=== PATIENT | male | born 1970 | race Caucasian/White ===

== ENCOUNTER 2021-05-09 08:19 | Outpatient (REF) | payer OTHER, SELFPAY ==
[2021-05-09 09:14] LABS: Binax Internal Control QC Valid; Binax Lot number: 9864; Binax Now Covid-19 Ag Positive (Negative)
== END 2021-05-09 08:20 | disposition home or self-care (01) ==
LOC: HO.LAB 08:19
PROVIDERS: Visit Provider Internal Medicine
DX: Z20.822 Contact with and (suspected) exposure to COVID-19 (principal)
CPT/HCPCS: C9803

== ENCOUNTER 2021-05-14 07:21 | Outpatient (REF) | payer OTHER, SELFPAY ==
[2021-05-14 08:05] LABS: COVID-19 Test Negative (Negative)
== END 2021-05-14 07:22 | disposition home or self-care (01) ==
LOC: HO.LAB 07:21
PROVIDERS: Visit Provider Internal Medicine
DX: Z20.822 Contact with and (suspected) exposure to COVID-19 (principal)
CPT/HCPCS: 87635; C9803

== ENCOUNTER 2022-08-13 00:56 | Emergency (ER) | payer OTHER, SELFPAY ==
--- NOTE | ~2022-08-13 | CT_ITS ---
EXAMINATION: CT ABDOMEN AND PELVIS WITHOUT CONTRAST CLINICAL INFORMATION: Left flank pain COMPARISON: 10/14/2019 TECHNIQUE: Multidetector volumetric imaging was performed from the superior aspect of the liver through the pubic symphysis. Coronal and sagittal reformatted images were created at the technologist workstation. This CT examination was performed using dose optimization techniques as appropriate, variously including the following: *Automated exposure control *Adjustment of mA and/or kV according to patient size (this includes techniques or standardized protocols for targeted exams where dose is matched to indication/reason for exam; i.e. extremities or head) *Use of iterative reconstruction technique DLP: 565 mGy-cm FINDINGS: LUNG BASES: The visualized lung bases are unremarkable. Coronary artery calcifications are present. LIVER, GALLBLADDER, AND BILIARY TREE: There is hypoattenuation of the liver suspicious for steatosis. No intrahepatic biliary ductal dilatation. The gallbladder is unremarkable with no evidence of radiopaque gallstones, gallbladder wall thickening, or obvious pericholecystic inflammatory changes. PANCREAS: No peripancreatic inflammation. Couple tiny calcifications are noted. SPLEEN: Unremarkable. ADRENAL GLANDS: Unremarkable. KIDNEYS AND URETERS: There is mild left hydroureteronephrosis, likely secondary to a 2 mm calculus at or just beyond the left ureterovesicular junction. No right hydronephrosis. Few bilateral renal calculi are noted measuring up to 5 mm in the lower left kidney. Cortical scarring noted in the upper right kidney. Small bilateral renal cysts noted; no follow-up recommended. BLADDER: Mildly distended. A 2 mm calculus is noted at or just beyond the left ureterovesicular junction. GASTROINTESTINAL TRACT: Small hiatal hernia. Assessment for wall thickening in some segments of the colon is limited due to luminal collapse, though no significant pericolonic stranding is seen to strongly suggest a colitis. No evidence of bowel obstruction. The appendix is unremarkable. No free fluid or free air is seen. ABDOMINAL WALL: Small fat-containing left inguinal hernia. Evidence of prior ventral hernia repair. LYMPH NODES: Normal. VASCULAR: Moderate atherosclerotic calcifications. PELVIC VISCERA: Unremarkable. OSSEOUS STRUCTURES: Degenerative change noted at L5-S1. CT/CT abdomen pelvis wo IV con IMPRESSION: 1. Mild left hydroureteronephrosis, likely secondary to a 2 mm calculus at or just beyond the left ureterovesicular junction. 2. Few bilateral renal calculi. 3. Coronary artery calcifications. Correlation with cardiac risk factors is recommended.
[2022-08-13 00:59] VITALS: BP 118/70; PULSE 90; RESP 16; TEMP 36.6; O2SAT 97; BMI 29.2
[2022-08-13 01:22] LABS: MANUAL DIFF FLAG NO
[2022-08-13 01:23] LABS: Basophils Percent Auto 0.5 % (0-2); Eosinophils Absolute Auto 0.2 X10*3/uL (0.0-0.4); Eosinophils Percent Auto 1.8 % (0-4); Hematocrit 37.8 % (42.0-52.0); Hemoglobin 13.4 g/dl (14.0-18.0); Imm Gran Abs Auto 0.04 X10*3/uL (0.00-0.03); Imm Gran Pct Auto 0.5 % (0.0-0.4); Lymphocytes Percent Auto 22.3 % (20-40); Mean Corpuscular HGB Conc 35.4 g/dl (31.0-36.0); Mean Corpuscular Hemoglobin 31.5 pg (27.0-33.0); Mean Corpuscular Volume 88.9 fL (80.0-98.0); Mean Platelet Volume 8.8 fL (9.4-12.4); Monocytes Absolute Auto 0.7 X10*3/uL (0.1-1.2); Monocytes Percent Auto 8.3 % (2-11); Neutrophils Absolute Auto 5.8 x10*3/uL (2.0-8.3); Neutrophils Percent Auto 66.6 % (45-73); Platelet Count 293 X10*3/uL (160-400); Red Blood Count 4.25 X10*6/uL (4.60-5.80); Red Cell Distribution Width 13.3 % (11.0-16.0); White Blood Count 8.8 X10*3/uL (4.8-10.8)
--- NOTE | 2022-08-13 01:30 | ED_ITS ---
HPI - General Adult General Chief complaint: General Medical Stated complaint: abd pain, history of kidney stones, blood in urine Time Seen by Provider: 08/13/22 01:12 Source: patient and family Mode of arrival: ambulatory History of Present Illness HPI narrative: 52-year-old male arrives with complaints of left lower abdominal/left flank pain that has been ongoing for 3 days with associated dysuria, hematuria, nausea but no vomiting as well as chills. Patient does have a significant past medical history of renal colic as well as renal cancer on the right (twice). Related Data Previous Rx's Medication Instructions Recorded ketorolac 10 mg tablet 10 mg PO Q6H PRN pain 5 days #10 08/13/22 tabs tamsulosin 0.4 mg capsule (Flomax) 0.4 mg PO BEDTIME #4 caps 08/13/22 Allergies Allergy/AdvReac Type Severity Reaction Status Date / Time No Known Allergies Allergy Unverified 01/11/20 19:32 [No Known Allergies*] Review of Systems Review of Systems: Pertinent positives and negatives as stated in HPI [facility] Past Medical History Source: nursing notes reviewed Social History Social History Alcohol intake: never Smoked in Last 30 Days: No Use of substances other than those prescribed or required for medical reasons: No Advance Directives: No Advance Directives Information Provided: Yes Physical Exam ED Vital Signs: Vital Signs - 24 hr 08/13/22 00:59 08/13/22 02:33 Temperature 97.9 F 98.3 F Pulse Rate 90 94 Respiratory Rate 16 16 Blood Pressure 118/70 125/76 Pulse Oximetry 97 97 Oxygen Delivery Method Room Air Room Air BMI result Body Mass Index 29.2 VITAL SIGNS: Reviewed. GENERAL: Well developed, well nourished, in no acute distress. HEAD: Normocephalic/atraumatic EYES: PERRLA, EOMI LUNGS: Normal breath sounds. No adventitious sounds or accessory muscle use. SpO2<97> CARDIOVASCULAR: Regular rate and rhythm without noted murmurs ABDOMEN: Soft, left lower quadrant/flank pain without rebound, non-distended with bowel sounds. MUSCULOSKELETAL: No tenderness, deformities, or effusions noted on gross inspection. EXTREMITIES: No cyanosis, clubbing or edema. SKIN: Inspection of the skin reveals no rashes NEUROLOGIC: Alert and oriented x 4. Strength and sensation to light touch were grossly intact x 4. Medications Administered Discontinued Medications Generic Name Dose Route Start Last Admin Trade Name Karyn PRN Reason Stop Dose Admin Sodium Chloride 1,000 mls @ 999 mls/hr 08/13/22 01:30 08/13/22 02:50 Ns IV 08/13/22 02:30 Infused .Q1H1M MARY Infusion Ketorolac Tromethamine 15 mg 08/13/22 01:26 08/13/22 01:47 Ketorolac Tromethamine 30 Mg/Ml Vial IVPUSH 08/13/22 01:27 15 mg ONCE ONE Administration Ketorolac Tromethamine 15 mg 08/13/22 03:03 08/13/22 03:07 Ketorolac Tromethamine 30 Mg/Ml Vial IVPUSH 08/13/22 03:04 15 mg ONCE ONE Administration Ondansetron HCl 4 mg 08/13/22 01:26 08/13/22 01:48 Ondansetron Hcl 4 Mg/2 Ml Vial IVPUSH 08/13/22 01:27 4 mg ONCE ONE Administration Tamsulosin HCl 0.4 mg 08/13/22 03:24 08/13/22 03:44 Tamsulosin Hcl 0.4 Mg Capsule PO 08/13/22 03:25 0.4 mg ONCE ONE Administration Medical Decision Making Medical Decision Making MDM Narrative: 52-year-old male with history and clinical presentation most indicative of renal colic, will evaluate for possibility of JAYSON and lower clinical suspicion for diverticulitis. Patient received pain medication, IV fluids as well as antiemetics. I reviewed all investigations to include imaging studies in my interpretation is that this patient has a very slight JAYSON on obvious CKD likely secondary to 2 mm stone, on re-evaluation patient has cotton good symptom relief from the medication. Will repeat basic metabolic panel to ensure improvement in the JAYSON and then discharged patient home. All results, findings, plans discussed with the patient and his at bedside. Patient will follow-up with his personal urologist. Differential Diagnosis Please see the discussion above Lab Data Please see the discussion above 08/13/22 01:17 08/13/22 01:17 Labs: Lab Results 08/13/22 08/13/22 08/13/22 Range/Units 01:17 01:17 02:31 WBC 8.8 (4.8-10.8) X10*3/uL RBC 4.25 L (4.60-5.80) X10*6/uL Hgb 13.4 L (14.0-18.0) g/dl Hct 37.8 L (42.0-52.0) % MCV 88.9 (80.0-98.0) fL MCH 31.5 (27.0-33.0) pg MCHC 35.4 (31.0-36.0) g/dl RDW 13.3 (11.0-16.0) % Plt Count 293 (160-400) X10*3/uL MPV 8.8 L (9.4-12.4) fL Immature Gran % (Auto) 0.5 H (0.0-0.4) % Neut % (Auto) 66.6 (45-73) % Lymph % (Auto) 22.3 (20-40) % [place] % (Auto) 8.3 (2-11) % Eos % (Auto) 1.8 (0-4) % Baso % (Auto) 0.5 (0-2) % Lymph # (Auto) 2.0 (1.2-4.9) X10*3/uL [place] # (Auto) 0.7 (0.1-1.2) X10*3/uL Eos # (Auto) 0.2 (0.0-0.4) X10*3/uL Baso # (Auto) 0.0 (0.0-0.2) X10*3/uL Abs Immat Gran (auto) 0.04 H (0.00-0.03) X10*3/uL Absolute Neuts (auto) 5.8 (2.0-8.3) x10*3/uL Absolute Nucleated RBC 0.000 (0.0-0.012) X10*3/uL Nucleated RBC % (auto) 0.0 (0.0-0.2) /100WBC Sodium 139 (135-145) mmol/L Potassium 3.7 (3.3-5.1) mmol/L Chloride 103 (96-108) mmol/L Carbon Dioxide 22 (22-29) mmol/L Anion Gap 18 (12-20) BUN 20 H (9-16) mg/dL Creatinine 1.69 H (0.5-1.4) mg/dL Estim Creat Clear Calc 47.9 Estimated GFR 43 Random Glucose 207 H (60-115) mg/dL Calcium 9.2 (8.4-10.2) mg/dL Urine Color Yellow Urine Appearance Clear Urine pH 5.0 (5.0-9.0) Ur Specific [place] 1.010 (1.005-1.025) Urine Protein Negative (Neg-Trace) mg/dL Urine Glucose (UA) Negative (Negative) mg/dL Urine Ketones Negative (Negative) mg/dL Urine Blood Moderate (2+) H (Negative) Urine Nitrite Negative (Negative) Ur Leukocyte Esterase Negative (Negative) Urine RBC 3-5 H (0-2) /HPF Urine WBC 0-5 (0-5) /HPF Ur Squamous Epith Cells 0-2 (0-2) /HPF Other Crystals Present Urine Bacteria None Seen (None Seen) Hyaline Casts 0-2 (0-2) /LPF 08/13/22 Range/Units 03:26 WBC (4.8-10.8) X10*3/uL RBC (4.60-5.80) X10*6/uL Hgb (14.0-18.0) g/dl Hct (42.0-52.0) % MCV (80.0-98.0) fL MCH (27.0-33.0) pg MCHC (31.0-36.0) g/dl RDW (11.0-16.0) % Plt Count (160-400) X10*3/uL MPV (9.4-12.4) fL Immature Gran % (Auto) (0.0-0.4) % Neut % (Auto) (45-73) % Lymph % (Auto) (20-40) % [place] % (Auto) (2-11) % Eos % (Auto) (0-4) % Baso % (Auto) (0-2) % Lymph # (Auto) (1.2-4.9) X10*3/uL [place] # (Auto) (0.1-1.2) X10*3/uL Eos # (Auto) (0.0-0.4) X10*3/uL Baso # (Auto) (0.0-0.2) X10*3/uL Abs Immat Gran (auto) (0.00-0.03) X10*3/uL Absolute Neuts (auto) (2.0-8.3) x10*3/uL Absolute Nucleated RBC (0.0-0.012) X10*3/uL Nucleated RBC % (auto) (0.0-0.2) /100WBC Sodium 140 (135-145) mmol/L Potassium 4.0 (3.3-5.1) mmol/L Chloride 106 (96-108) mmol/L Carbon Dioxide 22 (22-29) mmol/L Anion Gap 16 (12-20) BUN 20 H (9-16) mg/dL Creatinine 1.69 H (0.5-1.4) mg/dL Estim Creat Clear Calc 47.9 Estimated GFR 43 Random Glucose 181 H (60-115) mg/dL Calcium 8.5 D (8.4-10.2) mg/dL Urine Color Urine Appearance Urine pH (5.0-9.0) Ur Specific [place] (1.005-1.025) Urine Protein (Neg-Trace) mg/dL Urine Glucose (UA) (Negative) mg/dL Urine Ketones (Negative) mg/dL Urine Blood (Negative) Urine Nitrite (Negative) Ur Leukocyte Esterase (Negative) Urine RBC (0-2) /HPF Urine WBC (0-5) /HPF Ur Squamous Epith Cells (0-2) /HPF Other Crystals Urine Bacteria (None Seen) Hyaline Casts (0-2) /LPF Radiology Impression Radiologist Impression: My interpretation is in agreement with radiology's impression of the imaging study. External Record Review External record reviewed: Outpatient record and Prior outpatient labs Chronic Conditions Patient?s care impacted by: Hypertension Discharge Plan Discharge Clinical Impression: Hydroureteronephrosis, Renal colic, Ureterolithiasis, Acute on chronic kidney failure Patient Disposition: Home, Self-Care Instructions: Renal Colic (ED), Hydronephrosis (ED), Ureteral Stones (ED) Additional Instructions: 1. Resume all home medications as prescribed. 2. Tylenol 1000 mg, orally, every 6 hours as needed for pain control. Do not exceed 4000 mg within 24 hours. 3. You have been prescribed Flomax as well as Toradol. 4. Follow-up with your urologist/primary care provider by calling both offices in the morning and setting up an appointment for re-evaluation. Return to the ER for any worsening symptoms. Prescriptions: New tamsulosin [Flomax] 0.4 mg capsule 0.4 mg PO BEDTIME Qty: 4 0RF ketorolac 10 mg tablet 10 mg PO Q6H PRN (Reason: pain) 5 Days Qty: 10 0RF Rx Instructions: Patient received Toradol in the emergency room.
[2022-08-13 01:38] LABS: Anion Gap 18 (12-20); Blood Urea Nitrogen 20 mg/dL (9-16); Calcium 9.2 mg/dL (8.4-10.2); Carbon Dioxide 22 mmol/L (22-29); Chloride 103 mmol/L (96-108); Creatinine Clr Calc Pharmacy 47.9; Estimated Glomerular Filt Rate 43; Glucose Random 207 mg/dL (60-115); Potassium 3.7 mmol/L (3.3-5.1); Sodium 139 mmol/L (135-145)
[2022-08-13] MEDS: Ketorolac Tromethamine 30 MG/ML VIAL 15 MG IVPUSH ×2 (01:47→03:07)
[2022-08-13] MEDS: 0.9 % Sodium Chloride 1,000 ML 999 ML IV (01:48)
[2022-08-13] MEDS: ondansetron HCL 4 MG/2 ML VIAL IVPUSH (01:48)
[2022-08-13 02:33] VITALS: BP 125/76; PULSE 94; RESP 16; TEMP 36.8; O2SAT 97
[2022-08-13 02:40] LABS: Appearance Urine Clear; Color Urine Yellow; Glucose Urine UA Negative (Negative); Leukocyte Esterase Urine Negative (Negative); Nitrite Urine Negative (Negative); UMIC TRIGGER UACC YES; Urine Blood Moderate (2+) (Negative); Urine Ketones Negative (Negative); Urine Protein Negative (Neg-Trace)
[2022-08-13 03:01] LABS: Bacteria Urine None Seen (None Seen); Hyaline Casts Urine 0-2 /LPF (0-2); Other Crystals Urine Present; Squamous Epithelial Cell Urine 0-2 /HPF (0-2); WBC Urine 0-5 /HPF (0-5)
[2022-08-13] MEDS: Tamsulosin HCL 0.4 MG CAPSULE PO (03:44)
[2022-08-13 03:47] LABS: Anion Gap 16 (12-20); Blood Urea Nitrogen 20 mg/dL (9-16); Calcium 8.5 mg/dL (8.4-10.2); Carbon Dioxide 22 mmol/L (22-29); Chloride 106 mmol/L (96-108); Creatinine Clr Calc Pharmacy 47.9; Estimated Glomerular Filt Rate 43; Glucose Random 181 mg/dL (60-115); Sodium 140 mmol/L (135-145)
== END 2022-08-13 03:55 | disposition home or self-care (01) ==
PROVIDERS: Emergency Provider Student in an Organized Health Care Education/Training Program
DX: N13.2 Hydronephrosis with renal and ureteral calculous obstruction (principal); I12.9 Hypertensive chronic kidney disease with stage 1 through stage 4 chronic kidney disease, or unspecified chronic kidney disease; N18.9 Chronic kidney disease, unspecified; N17.9 Acute kidney failure, unspecified
CPT/HCPCS: 36415; 74176; 80048; 81001; 85025; 96361; 96374; 96375; 96376; 99284; 99285; J1885; J2405

== ENCOUNTER 2022-08-16 10:33 | Inpatient (IN) | payer OTHER, SELFPAY ==
--- NOTE | ~2022-08-16 | CT_ITS ---
EXAMINATION: CT ABDOMEN AND PELVIS WITHOUT CONTRAST CLINICAL INFORMATION: Rule out worsening hydronephrosis, abdominal pain, stones COMPARISON: CT abdomen pelvis 08/13/2022 TECHNIQUE: Multidetector volumetric imaging was performed from the superior aspect of the liver through the pubic symphysis. Sagittal and coronal reformatted images were obtained on the technologist's workstation. This CT examination was performed using dose optimization techniques as appropriate, variously including the following: *Automated exposure control *Adjustment of mA and/or kV according to patient size (this includes techniques or standardized protocols for targeted exams where dose is matched to indication/reason for exam; i.e. extremities or head) *Use of iterative reconstruction technique DLP: 535 mGy-cm FINDINGS: LUNG BASES: Unremarkable. ABDOMINAL AND PELVIC WALL: Surgical mesh from prior ventral hernia repair. Small fat-containing umbilical hernia. Small fat-containing bilateral inguinal hernias. LIVER AND BILIARY TREE: Hypoattenuating hepatic parenchyma compatible with hepatic steatosis. GALLBLADDER: Unremarkable. PANCREAS: Unremarkable. SPLEEN: Unremarkable. ADRENAL GLANDS: Unremarkable. KIDNEYS AND URETERS: Bilateral nonobstructing stones measuring up to 4 mm in the right lower pole. Bosniak 1 benign-appearing right renal cyst, no imaging follow-up recommended. A 6 mm stone is now seen in the left ureterovesicular junction with an additional punctate stone within the distal left ureter, see kaba image, with persistent unchanged mild hydroureteronephrosis. Right renal parenchymal cortical scarring. GASTROINTESTINAL TRACT: Small hiatal hernia. Large and small bowel are unremarkable. Normal appendix. VASCULAR: Unremarkable. LYMPH NODES/PERITONEUM: No lymphadenopathy. FREE FLUID: None. BLADDER: Unremarkable. PELVIC VISCERA: Unremarkable. OSSEOUS STRUCTURES: Degenerative disc disease at L5-S1. CT/CT abdomen pelvis wo IV con IMPRESSION: 1. A 6 mm stone is now seen in the left ureterovesicular junction with an additional punctate stone within the distal left ureter, with persistent unchanged mild left hydroureteronephrosis. 2. Bilateral nonobstructing stones measuring up to 4 mm in the right lower pole. 3. Hepatic steatosis.
[2022-08-16 10:35] VITALS: BP 123/78; PULSE 73; RESP 18; TEMP 36.6; O2SAT 98; BMI 29.2
[2022-08-16] MEDS: 0.9 % Sodium Chloride 1,000 ML 999 ML IV (12:21)
[2022-08-16] MEDS: Ketorolac Tromethamine 15 MG/ML VIAL IVPUSH (12:25)
[2022-08-16 12:26] LABS: MANUAL DIFF FLAG NO
[2022-08-16 12:28] LABS: Basophils Percent Auto 0.2 % (0-2); Eosinophils Absolute Auto 0.1 X10*3/uL (0.0-0.4); Eosinophils Percent Auto 0.5 % (0-4); Hematocrit 35.8 % (42.0-52.0); Hemoglobin 12.8 g/dl (14.0-18.0); Imm Gran Abs Auto 0.03 X10*3/uL (0.00-0.03); Imm Gran Pct Auto 0.3 % (0.0-0.4); Lymphocytes Absolute Auto 0.7 X10*3/uL (1.2-4.9); Mean Corpuscular HGB Conc 35.8 g/dl (31.0-36.0); Mean Corpuscular Hemoglobin 31.7 pg (27.0-33.0); Mean Corpuscular Volume 88.6 fL (80.0-98.0); Mean Platelet Volume 8.9 fL (9.4-12.4); Monocytes Absolute Auto 0.8 X10*3/uL (0.1-1.2); Monocytes Percent Auto 7.9 % (2-11); Neutrophils Absolute Auto 8.4 x10*3/uL (2.0-8.3); Neutrophils Percent Auto 84.1 % (45-73); Platelet Count 279 X10*3/uL (160-400); Red Blood Count 4.04 X10*6/uL (4.60-5.80); Red Cell Distribution Width 13.1 % (11.0-16.0); White Blood Count 9.9 X10*3/uL (4.8-10.8)
--- NOTE | 2022-08-16 12:37 | PC.NURSE ---
preliminary med rec completed.
[2022-08-16 12:43] LABS: Alanine Aminotransferase 50 U/L (0-40); Albumin Level 4.5 g/dL (3.5-5.0); Alkaline Phosphatase 83 U/L (39-117); Anion Gap 17 (12-20); Aspartate Amino Transferase 40 U/L (5-37); Bilirubin Total 0.7 mg/dL (0.0-1.0); Blood Urea Nitrogen 25 mg/dL (9-16); Calcium 9.4 mg/dL (8.4-10.2); Carbon Dioxide 23 mmol/L (22-29); Chloride 100 mmol/L (96-108); Creatinine Clr Calc Pharmacy 23.8; Estimated Glomerular Filt Rate 19; Glucose Random 134 mg/dL (60-115); Magnesium 1.5 mg/dL (1.6-2.6); Potassium 4.3 mmol/L (3.3-5.1); Sodium 136 mmol/L (135-145); Total Protein 7.7 g/dL (6.5-8.0)
[2022-08-16] MEDS: HYDROmorphone HCl 1 MG/ML SYRINGE IVPUSH (12:58)
--- NOTE | 2022-08-16 13:12 | ED_ITS ---
HPI - Male Genitourinary General Chief complaint: Urogenital-Male Stated complaint: Kidney stone Time Seen by Provider: 08/16/22 11:30 Source: patient and family Mode of arrival: ambulatory Limitations: no limitations History of Present Illness HPI Narrative: 52-year-old male with no significant past medical history presents to the emergency department with complaints of worsening left flank/groin pain related to kidney stones. He reports symptoms began on Wednesday with left lower abdominal/left flank pain with associated dysuria, hematuria, and nausea. He reports he was seen in this emergency department late Wednesday night and a 2 mm stone in the left UVJ and mild hydroureteronephrosis with seen on CT. Patient was diagnosed with nephrolithiasis and acute kidney injury. He was discharged with p.o. Toradol and tamsulosin which she reports had minimal effect in reducing his discomfort. Today he states he is having severe pain and is having difficulty with urination. He reports his urine is dark with blood. He reports continued nausea without hematuria and chills without fever. He otherwise danya es chest pain, shortness of breath, constipation, diarrhea, melena, hematochezia, headache, or vision changes. Pertinent positives and negatives discussed in HPI. Related Data Home Medications Medication Instructions Recorded Confirmed amlodipine 5 mg tablet 5 mg PO DAILY 08/16/22 08/16/22 hydrochlorothiazide 25 mg tablet 25 mg PO DAILY 08/16/22 08/16/22 lisinopril 40 mg tablet 40 mg PO DAILY 08/16/22 08/16/22 Previous Rx's Medication Instructions Recorded ketorolac 10 mg tablet 10 mg PO Q6H PRN pain 5 days #10 08/13/22 tabs tamsulosin 0.4 mg capsule (Flomax) 0.4 mg PO BEDTIME #4 caps 08/13/22 Allergies Allergy/AdvReac Type Severity Reaction Status Date / Time acetaminophen [From Percocet] Allergy Itching Verified 08/16/22 10:35 oxycodone [From Percocet] Allergy Itching Verified 08/16/22 10:35 Review of Systems Review of Systems: Yes all other systems are reviewed and are negative PMFSH Social History Social History Alcohol intake: unknown Smoked in Last 30 Days: No Use of substances other than those prescribed or required for medical reasons: Unknown Advance Directives: No Advance Directives Information Provided: Yes Physical Exam Vital Signs: Vital Signs: Last Vital Signs Temp 98 F 08/16/22 10:35 Pulse 73 08/16/22 10:35 Resp 18 08/16/22 10:35 BP 123/78 08/16/22 10:35 Pulse Ox 98 08/16/22 10:35 O2 Del Method Room Air 08/16/22 10:35 BMI result Body Mass Index 29.2 Nursing notes and vital signs reviewed. GENERAL APPEARANCE: A&0 x 4, generally well appearing, no acute distress HENMT: Normal to inspection, atraumatic, face symmetrical. Normal external ears, nose, and oropharynx clear. EYE: PERRLA, EOM intact, structures appear normal NECK: Supple without lymphadenopathy. No stiffness or restricted ROM. CHEST: Normal to inspection HEART: Normal rate and regular rhythm, normal S1/S2, no M/R/G LUNGS: LS CTA, moving air well. Able to speak in complete sentences. No crackles, wheezes, or rhonchi auscultated ABDOMEN: Soft, nontender, nondistended. Normal bowel sounds noted BACK: No obvious deformity. Lt CVAT no Rt CVAT EXTREMITIES: Moving all extremities without difficulty. No cyanosis, clubbing, or edema. Normal capillary refill. NEUROLOGICAL: Alert and oriented, moving all 4 extremities with equal strength. CN not formally tested but appearing grossly intact. Observed to ambulate with normal gait. Cognition normal SKIN: Warm and dry without any lesions, rash, or visible sores PSYCH: Cooperative, normal affect, normal thought process Medications Administered Discontinued Medications Generic Name Dose Route Start Last Admin Trade Name Karyn PRN Reason Stop Dose Admin Hydromorphone HCl 1 mg 08/16/22 12:47 08/16/22 12:58 Hydromorphone Hcl 1 Mg/Ml Syringe IVPUSH 08/16/22 12:48 1 mg ONCE ONE Administration Protocol Sodium Chloride 1,000 mls @ 999 mls/hr 08/16/22 12:00 08/16/22 13:53 Ns IV 08/16/22 13:00 Infused .Q1H1M MARY Infusion Ketorolac Tromethamine 15 mg 08/16/22 11:47 08/16/22 12:25 Ketorolac Tromethamine 15 Mg/Ml Vial IVPUSH 08/16/22 11:48 15 mg ONCE ONE Administration Medical Decision Making Medical Decision Making [facility] Narrative: 1140: Old records reviewed for previous imaging, lab studies, ECGs, or notes. Patient was assessed the emergency department. No acute distress or toxicity noted. Patient is A&O x4, LS CTA, RUSSELL x4 with good strength. Based on HPI and PE plan for blood work, ua, CT abdomen pelvis to assess for worsening hydronephrosis. Toradol ordered for manage of discomfort IV fluids ordered. 1230: Chemistry showing worsening JAYSON with BUN 25 and creatinine 3.4 elevated from 20/1.69 on 08/13/2022. Hematology showing stable normocytic anemia most likely due to hematuria. 1245: CT abdomen/pelvis completed. I have independently interpreted this CT showing a 6 mm stone in the left UVJ with an additional stone in the left ureter, mild unchanged left hydroureteronephrosis and bilateral nonobstructing stones noted. Hepatic steatosis noted as incidental finding. IV Dilaudid ordered for continued 10/10 pain. 1300: Patient reassessed. After IV Dilaudid he reports significant relief of discomfort. I discussed patient's CT scan results and potential need for admission. Patient is on board with admission if needed with no unanswered questions at this time. 1310: Spoke with radiologist, Dr. Gomes, to verify size of stone at UVJ. Contacted Dr. Araujo, urologist, regarding patient's CT results. Plan to admit patient to Medicine Service with Urology Service as consult. Per Dr. Araujo patient will undergo inpatient cystoscopy tomorrow. 1325: I spoke with Dr. Al, hospitalist, regarding urology recommendations and admission request. Plan for patient to be admitted to medical service. P.r.n. antiemetics and analgesics ordered. Patient updated regarding admission status. Differential Diagnosis Differential Diagnoses: The differential diagnosis associated with the presentation includes Acute kidney injury, nephrolithiasis Admission/Observation Consideration of admission/observation: Escalation of care including admission/observation considered Plan for medical admission with urology consult Consult Healthcare Provider Management of the patient was discussed with: Hospitalist (Dirk Al) and Environmental Journalist (Meño Araujo) Lab Data [facility] Lab Attestation statement: I reviewed the patient's lab results. 08/16/22 12:20 08/16/22 12:20 Labs: Lab Results 04/23/23 04/23/23 Range/Units 12:20 12:20 WBC 9.9 (4.8-10.8) X10*3/uL RBC 4.04 L (4.60-5.80) X10*6/uL Hgb 12.8 L (14.0-18.0) g/dl Hct 35.8 L (42.0-52.0) % MCV 88.6 (80.0-98.0) fL MCH 31.7 (27.0-33.0) pg MCHC 35.8 (31.0-36.0) g/dl RDW 13.1 (11.0-16.0) % Plt Count 279 (160-400) X10*3/uL MPV 8.9 L (9.4-12.4) fL Immature Gran % (Auto) 0.3 (0.0-0.4) % Neut % (Auto) 84.1 H (45-73) % Lymph % (Auto) 7.0 L (20-40) % [place] % (Auto) 7.9 (2-11) % Eos % (Auto) 0.5 (0-4) % Baso % (Auto) 0.2 (0-2) % Lymph # (Auto) 0.7 L (1.2-4.9) X10*3/uL [place] # (Auto) 0.8 (0.1-1.2) X10*3/uL Eos # (Auto) 0.1 (0.0-0.4) X10*3/uL Baso # (Auto) 0.0 (0.0-0.2) X10*3/uL Abs Immat Gran (auto) 0.03 (0.00-0.03) X10*3/uL Absolute Neuts (auto) 8.4 H (2.0-8.3) x10*3/uL Absolute Nucleated RBC 0.000 (0.0-0.012) X10*3/uL Nucleated RBC % (auto) 0.0 (0.0-0.2) /100WBC Sodium 136 (135-145) mmol/L Potassium 4.3 (3.3-5.1) mmol/L Chloride 100 (96-108) mmol/L Carbon Dioxide 23 (22-29) mmol/L Anion Gap 17 (12-20) BUN 25 H (9-16) mg/dL Creatinine 3.40 H (0.5-1.4) mg/dL Estim Creat Clear Calc 23.8 Estimated GFR 19 Random Glucose 134 H (60-115) mg/dL Calcium 9.4 D (8.4-10.2) mg/dL Magnesium 1.5 L (1.6-2.6) mg/dL Total Bilirubin 0.7 (0.0-1.0) mg/dL AST 40 H (5-37) U/L ALT 50 H (0-40) U/L Alkaline Phosphatase 83 (39-117) U/L Total Protein 7.7 (6.5-8.0) g/dL Albumin 4.5 (3.5-5.0) g/dL Independent Interpretation I performed an independent interpretation of an: CT Scan Radiology Impression Discussion of test interpretation with radiology: I have reviewed the r adiologist's reading. Radiologist Impression: I spoke with radiologist, Dr. Gomes, regarding CT scan results to confirm size of stone in the UVJ Independent Historian Clinical information obtained from an independent historian. History obtained from or confirmed by: Spouse Additional history obtained from patient's regarding medication administration and hematuria Discharge Plan Discharge Clinical Impression: Hydroureteronephrosis, Acute kidney injury, Bilateral nephrolithiasis Patient Disposition: Admitted As Inpatient Prescriptions: No Action tamsulosin [Flomax] 0.4 mg capsule 0.4 mg PO BEDTIME Qty: 4 0RF ketorolac 10 mg tablet 10 mg PO Q6H PRN (Reason: pain) 5 Days Qty: 10 0RF Rx Instructions: Patient received Toradol in the emergency room. amlodipine 5 mg tablet 5 mg PO DAILY hydrochlorothiazide 25 mg tablet 25 mg PO DAILY lisinopril 40 mg tablet 40 mg PO DAILY
--- NOTE | 2022-08-16 13:42 | P.HPHOSP_ITS ---
History of Present Illness Date of Service: 08/16/22 Attending physician on admission: Dirk Al Chief Complaint: Left Flank Pain Pt is a 52-year-old male with a PMH significant for?HTN, renal cancer of right kidney s/p ablation in 2017 with tumor recurrence in 2021 s/p cauterization, and hx of nephrolithiasis who presents to the ED with?left flank pain radiating to his left groin. His also experienced nausea, vomiting, chills. Patient was seen at the ED 3 days prior on 08/13/2022 for similar complaints. Pt first noticed dysuria and hematuria on 08/12/2022. CT then showed mild hydrou reteronephrosis likely secondary to a 2 mm calculus at or just below the left uretrovesicular junction. Repeat CT scan today showed a 6 mm stone in the left ureterovesicular junction with an additional punctate stone within the distal left ureter and unchanged mild left hydroureteronephrosis, and hepatic steatosis. ED contacted Dr. Araujo from Urology, who is scheduled to see the patient tomorrow and perform procedure. Of note, patient is a S[employer]ism and is thus incapable of receiving any blood products. Labs were significant for a BUN of 25, creatinine elevated at 3.40, and chronic transaminitis of AST of 40 and ALT of 50. In the ED patient was treated IVF, ketorolac and Dilaudid. Pt will be admitted to the hospital for JAYSON likely secondary to obstructive uropathy. Review of Systems Review of Systems: Dysuria, hematuria Left flank pain radiating to left groin Nausea, vomiting Chills Yes all other systems are reviewed and are negative [facility] Social History Alcohol intake: unknown Smoked in Last 30 Days: No Use of substances other than those prescribed or required for medical reasons: Unknown Advance Directives: No Advance Directives Information Provided: Yes Meds Allergies Allergy/AdvReac Type Severity Reaction Status Date / Time acetaminophen [From Percocet] Allergy Itching Verified 08/16/22 10:35 oxycodone [From Percocet] Allergy Itching Verified 08/16/22 10:35 Home Medications Medication Instructions Recorded Confirmed Last Taken Type amlodipine 5 mg tablet 5 mg PO DAILY 08/16/22 08/16/22 1 Day Ago History ~08/15/22 hydrochlorothiazide 25 mg tablet 25 mg PO DAILY 08/16/22 08/16/22 1 Day Ago History ~08/15/22 lisinopril 40 mg tablet 40 mg PO DAILY 08/16/22 08/16/22 1 Day Ago History ~08/15/22 Physical Exam Vital Signs and Narrative: Vital Signs: Last Vital Signs Temp 98 F 08/16/22 10:35 Pulse 73 08/16/22 10:35 Resp 18 08/16/22 10:35 BP 123/78 08/16/22 10:35 Pulse Ox 98 08/16/22 10:35 O2 Del Method Room Air 08/16/22 10:35 BMI result Body Mass Index 29.2 Constitutional: Alert, in no acute distress. Mental Status: Oriented to person, place and time. Eyes: Pupils are equal, round, and reactive to light. Ear, Nose, and Throat: Oropharynx clear, mucous membranes moist. Ears and nose without deformities. Trachea midline. Respiratory: Clear to auscultation bilaterally. No wheezing, rales, or rhonchi. Cardiovascular: S1, S2 regular. No murmurs, rubs, or gallops. Gastrointestinal: Abdomen soft, non-distended, lower and left side of abdomen diffusely tender. Normal bowel sounds. Neurologic: Cranial nerves II-XII are grossly intact bilaterally. No focal neurological deficits. Moves all extremities spontaneously. Skin: No rashes or lesions noted. Musculoskeletal: Left flank tenderness. Extremities: No edema. Psychiatric: Normal mood and affect. Results Labs 08/16/22 12:20 08/16/22 12:20 Labs: Laboratory Results - last 24 hr 08/16/22 08/16/22 12:20 12:20 MCV 88.6 MCH 31.7 MCHC 35.8 RDW 13.1 Plt Count 279 MPV 8.9 L Immature Gran % (Auto) 0.3 Neut % (Auto) 84.1 H Lymph % (Auto) 7.0 L [place] % (Auto) 7.9 Eos % (Auto) 0.5 Baso % (Auto) 0.2 Lymph # (Auto) 0.7 L [place] # (Auto) 0.8 Eos # (Auto) 0.1 Baso # (Auto) 0.0 Abs Immat Gran (auto) 0.03 Absolute Neuts (auto) 8.4 H Absolute Nucleated RBC 0.000 Nucleated RBC % (auto) 0.0 Anion Gap 17 Estim Creat Clear Calc 23.8 Estimated GFR 19 Random Glucose 134 H Calcium 9.4 D Magnesium 1.5 L Total Bilirubin 0.7 AST 40 H ALT 50 H Alkaline Phosphatase 83 Total Protein 7.7 Albumin 4.5 Imaging Radiologist's Impressions: Impressions Abdomen/Pelvis CT 08/16/22 12:12 IMPRESSION: 1. A 6 mm stone is now seen in the left ureterovesicular junction with an additional punctate stone within the distal left ureter, with persistent unchanged mild left hydroureteronephrosis. 2. Bilateral nonobstructing stones measuring up to 4 mm in the right lower pole. 3. Hepatic steatosis. Assessment and Plan (1) Nephrolithiasis: Status: Acute (2) Obstructive uropathy: Status: Acute (3) AJYSON (acute kidney injury): Status: Acute Plan Pt is a 52-year-old male with a PMH significant for?HTN, renal cancer of right kidney s/p ablation in 2017 with tumor recurrence in 2021 s/p cauterization, and hx of nephrolithiasis who presents to the ED with?left flank pain radiating to his left groin. JAYSON likely secondary to obstructive uropathy Patient's creatinine 3.40, elevated from 1.69 3 days prior Likely secondary to 6 mm in the left ureterovesicular junction Dilaudid, acetaminophen on pain scale for pain management Continue tamsulosin Urology consult NPO after midnight in anticipation of likely procedure General Transaminitis Chronic, stable, likely secondary to hepatic steatosis HTN Continue amlodipine, hydrochlorothiazide Hold lisinopril due to JAYSON Full Code Attending:?Dr. Al DVT Prophylaxis: Pneumatic boots Pt will require a hospitalization of at least two nights for treatment of?JAYSON likely secondary to obstructive uropathy with surgical procedure. Time Spent With Patient Time: Total time managing care of this patient today ____ minutes. Quality Stroke Does the patient have a stroke diagnosis?: No VTE Prior VTE?: No VTE Risk Level:: Medical - moderate - high VTE Device Contraindication: N/A - Device Ordered VTE Drug Contraindication: Treatment Not Indicated
--- NOTE | 2022-08-16 14:48 | PHA.MEDREC ---
Pharmacy Consult ? Medication Reconciliation Pharmacy has completed the medication reconciliation. Reviewed med rec done by nursing (Ruth Ann).
[2022-08-16 14:54] LABS: Appearance Urine Clear; Color Urine Yellow; Glucose Urine UA Negative (Negative); Leukocyte Esterase Urine Trace (Negative); Nitrite Urine Negative (Negative); UMIC TRIGGER UACC YES; Urine Blood Trace (Negative); Urine Ketones Trace mg/dL (Negative); Urine Protein Negative (Neg-Trace)
[2022-08-16 14:59] LABS: Bacteria Urine None Seen (None Seen); Hyaline Casts Urine 0-2 /LPF (0-2); RBC Urine 0-2 /HPF (0-2); WBC Urine 0-5 /HPF (0-5)
--- NOTE | 2022-08-16 15:10 | PC.NURSE ---
First contact made to floor to give report.
[2022-08-16 16:00] VITALS: BP 134/85; PULSE 76; RESP 20; TEMP 37.2; O2SAT 97
[2022-08-16] MEDS: 0.9 % Sodium Chloride Flush 3 ML SYRINGE IVFLUSH ×2 (16:03→20:47)
[2022-08-16] MEDS: HYDROmorphone HCl 0.5 MG/0.5 ML SYRINGE IVPUSH ×2 (17:44→23:49)
--- NOTE | 2022-08-16 17:56 | PC.NURSE ---
Pt recent admit from ED pt arrived to floor approximately 1545. Pt arrived to unit A&Ox4 and cooperative with care. Pt able to ambulate from bed to stretcher. Pt reports minimal left flank and abd pain at this time. Vital signs stable, all needs met at this time.
[2022-08-16 19:33] VITALS: BP 115/62; PULSE 82; RESP 17; TEMP 36.4; O2SAT 97
[2022-08-16] MEDS: Tamsulosin HCL 0.4 MG CAPSULE PO (20:47)
[2022-08-17] MEDS: HYDROmorphone HCl 0.5 MG/0.5 ML SYRINGE IVPUSH (00:59)
[2022-08-17] MEDS: ondansetron HCL 4 MG/2 ML VIAL IVPUSH (01:09)
[2022-08-17 02:49] VITALS: BP 128/75; PULSE 92; RESP 16; TEMP 37.1; O2SAT 97
[2022-08-17] MEDS: HYDROmorphone HCl 1 MG/ML SYRINGE IVPUSH ×4 (04:06→13:18)
[2022-08-17 07:07] LABS: Anion Gap 12 (12-20); Blood Urea Nitrogen 26 mg/dL (9-16); Calcium 8.8 mg/dL (8.4-10.2); Carbon Dioxide 25 mmol/L (22-29); Chloride 104 mmol/L (96-108); Creatinine Clr Calc Pharmacy 28.2; Estimated Glomerular Filt Rate 23; Glucose Random 140 mg/dL (60-115); Potassium 4.3 mmol/L (3.3-5.1); Sodium 137 mmol/L (135-145)
[2022-08-17 07:12] VITALS: BP 138/84; PULSE 89; RESP 18; TEMP 36.8; O2SAT 98
[2022-08-17] MEDS: amLODIPine Besylate 5 MG TABLET PO (08:50)
[2022-08-17] MEDS: 0.9 % Sodium Chloride Flush 3 ML SYRINGE IVFLUSH (08:53)
--- NOTE | 2022-08-17 09:37 | MHC.CM.PN ---
MALE 52 DX RENAL STONE PROCEDURE PLANNED AFTERNOON. He live with his fiance. He is independent with all functional mobility. He is vaxxed for covid. He declined the offer to document a HCP. DP home self care [facility] will transport home.
[2022-08-17] MEDS: Dextrose 5 % and 0.9 % NaCl 1,000 ML 125 ML IVCONT (09:55)
--- NOTE | 2022-08-17 10:34 | P.CNUR_ITS ---
History of Present Illness Consult details Consult date: 08/17/22 Narrative: Consulting Complaint left distal ureteric stone 52-year-old male Prior history of stones Has had procedures on right kidney for renal cancer with Dr. Sung with [facility] Five day history of left flank pain Been in the emergency room a couple of days ago At that point diagnosed with 3 mm distal ureteric stone Re-presented with nausea, vomiting repeat CT showed distal 8 mm left ureteric stone with progressive hydroureteronephrosis Creatinine 3.4 on presentation, currently 2.9 WBC 9.9 Plan for left distal stone intervention Review of Systems Constitutional: Constitutional: Reports as per HPI and Reports no additional constitutional complaints Cardiovascular: Cardiovascular: Reports as per HPI and Reports no additional cardiovascular complaints Respiratory: Respiratory: Reports as per HPI and Reports no additional respiratory complaints Gastrointestinal: Gastrointestinal: Reports as per HPI and Reports no additi onal gastrointestinal complaints Genitourinary: Genitourinary: Reports as per HPI Musculoskeletal: Musculoskeletal: Reports no additional musculoskeletal complaints and Reports as per HPI Neurologic: Reports system reviewed and no additional complaints, except as documented and Reports as per HPI REPLACED BY [facility] Social History Social History Household Members: Spouse Housing: House Do you presently have visiting nurse or other home services: No Alcohol intake: unknown Patient Tobacco Use Status: Never used Tobacco Smoked in Last 30 Days: No Patient Interested in Nicotine Replacement: No Patient Given Instructions on How to Stop Smoking: No Second Hand Smoke Exposure: No Use of substances other than those prescribed or required for medical reasons: No Currently Displaying Signs/Symptoms of Drug Intoxication Withdrawal: No Any prior treatment program specific to substance use: No Do you feel safe in your current relationship?: Yes Spiritual Healthcare Practices: [facility] Healthcare Practices: Do not accept blood products Advance Directives: No Advance Directives Information Provided: Yes Do you have thoughts of harming others: None Do you have a plan to hurt others: No Plan Recently lost weight without trying: No Eating poorly because of decreased appetite: No Nutrition Risks: No Nutritional Risk Poor oral hygiene: No service: No Current occupational status: disabled Meds Allergies Allergy/AdvReac Type Severity Reaction Status Date / Time acetaminophen [From Percocet] Allergy Itching Verified 08/16/22 10:35 oxycodone [From Percocet] Allergy Itching Verified 08/16/22 10:35 Active Medications: Current Medications Acetaminophen (Acetaminophen 325 Mg Tablet) 650 mg PO QID PRN PRN Reason: Pain, Moderate (Pain Scale 4-6 Amlodipine Besylate (Amlodipine Besylate 5 Mg Tablet) 5 mg PO DAILY [facility]; Protocol Last Admin: 08/17/22 08:50 Dose: 5 mg Hydromorphone HCl (Hydromorphone Hcl 1 Mg/Ml Syringe) 1 mg IVPUSH Q3H PRN; Protocol PRN Reason: Pain, Severe (Pain Scale 7-10) Last Admin: 08/17/22 09:50 Dose: 1 mg Dextrose/Sodium Chloride (D5ns) 1,000 mls @ 125 mls/hr IVCONT .Q8H [facility] Last Admin: 08/17/22 09:55 Dose: 125 mls/hr Ondansetron HCl (Ondansetron Hcl 4 Mg/2 Ml Vial) 4 mg IVPUSH Q8H PRN PRN Reason: Nausea and Vomiting Last Admin: 08/17/22 01:09 Dose: 4 mg Sodium Chloride (0.9 % Sodium Chloride Flush 3 Ml Syringe) 3 ml IVFLUSH QSHIFT [facility] Last Admin: 08/17/22 08:53 Dose: 3 ml Tamsulosin HCl (Tamsulosin Hcl 0.4 Mg Capsule) 0.4 mg PO BEDTIME [facility] Last Admin: 08/16/22 20:47 Dose: 0.4 mg Home Medications Medication Instructions Recorded Confirmed Last Taken Type amlodipine 5 mg tablet 5 mg PO DAILY 08/16/22 08/16/22 1 Day Ago History ~08/15/22 hydrochlorothiazide 25 mg tablet 25 mg PO DAILY 08/16/22 08/16/22 1 Day Ago History ~08/15/22 lisinopril 40 mg tablet 40 mg PO DAILY 08/16/22 08/16/22 1 Day Ago History ~08/15/22 Physical Exam Vital Signs: Vital Signs: Last Vital Signs Temp 98.2 F 08/17/22 07:12 Pulse 89 08/17/22 07:12 Resp 18 08/17/22 07:12 BP 138/84 08/17/22 07:12 Pulse Ox 98 08/17/22 07:12 O2 Del Method Room Air 08/17/22 07:12 BMI result Body Mass Index 29.2 Const: General: cooperative, healthy appearing, comfortable and no acute distress Orientation/consciousness: patient oriented x3 HEENT: Face and sinus: Yes normal facial exam Mouth: moist mucous membranes Neck: Neck: Yes normal visual inspection, Yes full ROM and Yes trachea midline Chest: Chest palpation & inspection: normal inspection of the chest Resp: Effort & Inspection: normal respiratory effort, able to speak in complete sentences and no respiratory distress GI: Inspection: Yes normal to inspection Back/Spine/Pelvis: Cervical Spine: normal cervical lordosis Thoracic/Lumbar Spine: thoracic and lumbar spine normal to inspection Skin: General skin exam: no rashes or lesions noted Neuro: General: patient oriented x3, tone normal and moves all extremities Extrem: General: Yes normal to inspection and Yes capillary refill normal Results Labs 08/16/22 12:20 08/17/22 05:49 Labs: Abnormal lab results 08/16/22 08/16/22 08/16/22 Range/Units 12:20 12:20 14:32 RBC 4.04 L (4.60-5.80) X10*6/uL Hgb 12.8 L (14.0-18.0) g/dl Hct 35.8 L (42.0-52.0) % MPV 8.9 L (9.4-12.4) fL Neut % (Auto) 84.1 H (45-73) % Lymph % (Auto) 7.0 L (20-40) % Lymph # (Auto) 0.7 L (1.2-4.9) X10*3/uL Absolute Neuts (auto) 8.4 H (2.0-8.3) x10*3/uL BUN 25 H (9-16) mg/dL Creatinine 3.40 H (0.5-1.4) mg/dL Random Glucose 134 H (60-115) mg/dL Magnesium 1.5 L (1.6-2.6) mg/dL AST 40 H (5-37) U/L ALT 50 H (0-40) U/L Urine Blood Trace H (Negative) Ur Leukocyte Esterase Trace H (Negative) 08/17/22 Range/Units 05:49 RBC (4.60-5.80) X10*6/uL Hgb (14.0-18.0) g/dl Hct (42.0-52.0) % MPV (9.4-12.4) fL Neut % (Auto) (45-73) % Lymph % (Auto) (20-40) % Lymph # (Auto) (1.2-4.9) X10*3/uL Absolute Neuts (auto) (2.0-8.3) x10*3/uL BUN 26 H (9-16) mg/dL Creatinine 2.87 H (0.5-1.4) mg/dL Random Glucose 140 H (60-115) mg/dL Magnesium (1.6-2.6) mg/dL AST (5-37) U/L ALT (0-40) U/L Urine Blood (Negative) Ur Leukocyte Esterase (Negative) Short CBC 08/16/22 Range/Units 12:20 WBC 9.9 (4.8-10.8) X10*3/uL Hgb 12.8 L (14.0-18.0) g/dl Hct 35.8 L (42.0-52.0) % Plt Count 279 (160-400) X10*3/uL BMP 08/16/22 08/17/22 12:20 05:49 Sodium 136 137 Potassium 4.3 4.3 Chloride 100 104 Carbon Dioxide 23 25 BUN 25 H 26 H Creatinine 3.40 H 2.87 H Calcium 9.4 D 8.8 D Liver Function 08/16/22 Range/Units 12:20 Total Bilirubin 0.7 (0.0-1.0) mg/dL AST 40 H (5-37) U/L ALT 50 H (0-40) U/L Alkaline Phosphatase 83 (39-117) U/L Albumin 4.5 (3.5-5.0) g/dL Urine 08/16/22 Range/Units 14:32 Urine Color Yellow Urine Appearance Clear Urine pH 5.0 (5.0-9.0) Ur Specific [place] 1.020 (1.005-1.025) Urine Protein Negative (Neg-Trace) mg/dL Urine Glucose (UA) Negative (Negative) mg/dL All other labs normal. Assessment and Plan (1) JAYSON (acute kidney injury): Status: Acute (2) Obstructive uropathy: Status: Acute (3) Nephrolithiasis: Status: Acute Plan rehydration left distal stone intervention Ureteroscopy We discussed the nature of the decision and reasonable alternatives for performing ureteroscopy. Options such as medical therapy were discussed. Interventions include chemical dissolution, ESWL, ureteroscopy with laser lithotripsy and stent placement, PCNL. The relative uncertainties and benefits related to each alternate procedure were adequately discussed. General surgical risks including, but not limited to - pain, bleeding, infection, myocardial infarction, pulmonary embolus, deep vein thrombosis and cerebrovascular accident which may result in further hospi talization were discussed. Full disclosure of the procedure as well as all major risks, benefits and complications were discussed including but not limited to damage to the urethra, bladder and kidney infection, damage to the ureter, stent migration or malposition, scarring to the renal pelvis, remnant stone fragments, subsequent stone passage with need for secondary procedures. The overall secondary procedure rate is approximately 10-15%. The overall clearance rate is approximately 90-95%. Success of the procedure in the short-term does not necessarily guarantee that long-term success will be maintained. Suitable follow up will need to be maintained. The patient showed understanding of discussion and wishes to proceed with - cystoscopy, retrograde, ureteroscopy, possible lithotripsy/stone basketing and stent on the left side Time Spent With Patient Time: Total time managing care of this patient today ____ minutes. Procedures Date of Service Date of Service: 08/17/22
--- NOTE | 2022-08-17 14:40 | P.PNIM_ITS ---
Subjective Subjective Date of Service: 08/17/22 Interval History: Complaining of persistent left flank pain, denies fever chills no lightheadedness or dizziness no nausea no vomiting no other acute issues overnight. NPO for left ureteral stone intervention this afternoon. Review of Systems Review of Systems: Yes all other systems are reviewed and are negative Physical Exam Vital Signs: Vital Signs: Last Vital Signs Temp 98.2 F 08/17/22 07:12 Pulse 89 08/17/22 07:12 Resp 18 08/17/22 07:12 BP 138/84 08/17/22 07:12 Pulse Ox 98 08/17/22 07:12 O2 Del Method Room Air 08/17/22 07:12 BMI result Body Mass Index 29.2 Const: Other: General resting comfortably in no acute distress. Neck supple no JVD. CVS regular rate rhythm, Respiratory lungs clear to auscultation, no respiratory distress, no wheeze, no rhonchi. Gastrointestinal abdomen soft, nontender, bowel sounds audible, no guarding , no rigidity. Left flank tenderness. Extremities no edema. Neuro nonfocal Skin no rash Objective Data Active Medications Acetaminophen (Acetaminophen 325 Mg Tablet) 650 mg PO QID PRN PRN Reason: Pain, Moderate (Pain Scale 4-6 Amlodipine Besylate (Amlodipine Besylate 5 Mg Tablet) 5 mg PO DAILY [facility]; Protocol Last Admin: 08/17/22 08:50 Dose: 5 mg Documented By: ANTOINETTE Hydromorphone HCl (Hydromorphone Hcl 1 Mg/Ml Syringe) 1 mg IVPUSH Q3H PRN; Protocol PRN Reason: Pain, Severe (Pain Scale 7-10) Last Admin: 08/17/22 13:18 Dose: 1 mg Documented By: ANTOINETTE Dextrose/Sodium Chloride (D5ns) 1,000 mls @ 125 mls/hr IVCONT .Q8H [facility] Last Admin: 08/17/22 09:55 Dose: 125 mls/hr Documented By: ANTOINETTE Ondansetron HCl (Ondansetron Hcl 4 Mg/2 Ml Vial) 4 mg IVPUSH Q8H PRN PRN Reason: Nausea and Vomiting Last Admin: 08/17/22 01:09 Dose: 4 mg Documented By: CARLOTTA Sodium Chloride (0.9 % Sodium Chloride Flush 3 Ml Syringe) 3 ml IVFLUSH QSHIFT [facility] Last Admin: 08/17/22 08:53 Dose: 3 ml Documented By: ANTOINETTE Tamsulosin HCl (Tamsulosin Hcl 0.4 Mg Capsule) 0.4 mg PO BEDTIME [facility] Last Admin: 08/16/22 20:47 Dose: 0.4 mg Documented By: CARLOTTA Labs 08/16/22 12:20 08/17/22 05:49 Labs: Laboratory Results - last 24 hr 08/16/22 08/17/22 14:32 05:49 Anion Gap 12 Estim Creat Clear Calc 28.2 Estimated GFR 23 Random Glucose 140 H Calcium 8.8 D Urine Color Yellow Urine Appearance Clear Urine pH 5.0 Ur Specific House 1.020 Urine Protein Negative Urine Glucose (UA) Negative Urine Ketones Trace Urine Blood Trace H Urine Nitrite Negative Ur Leukocyte Esterase Trace H Urine RBC 0-2 Urine WBC 0-5 Ur Squamous Epith Cells 3-5 Urine Bacteria None Seen Hyaline Casts 0-2 Assessment and Plan (1) JAYSON (acute kidney injury): Status: Acute (2) Obstructive uropathy: Status: Acute (3) Nephrolithiasis: Status: Acute Plan repeat CT showed distal 8 mm left ureteric stone with progressive hydroureteronephrosis Creatinine 3.4 on presentation, currently 2.9 WBC 9.9 Plan for left distal stone intervention 52-year-old male with a PMH significant for?HTN, renal cancer of right kidney s/p ablation in 2017 with tumor recurrence in 2021 s/p cauterization, and hx of nephrolithiasis who presents to the ED with?left flank pain radiating to his left groin. JAYSON likely secondary to obstructive uropathy Patient's creatinine 3.40, elevated from 1.69 3 days prior Creatinine trending down, follow BMP Likely secondary to stone left ureterovesicular junction Continue IV Dilaudid, for pain management, add K-pad Continue tamsulosin Seen by Urology plan is for left distal stone intervention this afternoon continue NPO and IV fluids Transaminitis Chronic, stable, likely secondary to hepatic steatosis HTN Continue amlodipine, Hold lisinopril and hydrochlorothiazide due to JAYSON Full Code DVT Prophylaxis: Pneumatic boots Pt will require continued inpatient hospitalization for JAYSON and further management of left ureteric stone Time Spent With Patient Time: Total time managing care of this patient today ____ minutes. Quality Stroke Does the patient have a stroke diagnosis?: No VTE Prior VTE?: No VTE Risk Level:: Medical - moderate - high VTE Device Contraindication: N/A - Device Ordered VTE Drug Contraindication: Treatment Not Indicated
[2022-08-17 15:49] VITALS: BP 140/67; PULSE 90; RESP 20; TEMP 37; O2SAT 99
[2022-08-17] MEDS: Acetaminophen 325 MG TABLET 650 MG PO (17:10)
--- NOTE | 2022-08-17 19:13 | PC.NURSE ---
1849 patient states no longer having pain. reports has been urinating and passing sand stone fragments all day. dr. allan messaged and made aware. procedure cancelled following patient express preference to cancel and surgeon notification of no longer having pain and apparent stone fragments in urine.
[2022-08-17] MEDS: Tamsulosin HCL 0.4 MG CAPSULE PO (20:08)
--- NOTE | 2022-08-18 16:24 | PM.DS ---
DS: Providers Provider Date of Service: 08/17/22 Date of admission: 08/16/22 14:35 Primary care physician: Unknown Physician Consults: 08/16/22 15:04 Consult to Urology Routine Consulting Provider: Meño Araujo Reason for consultation: 6mm obstructing stone DS: Diagnosis Discharge Diagnosis (1) JAYSON (acute kidney injury): Status: Acute (2) Obstructive uropathy: Status: Acute (3) Nephrolithiasis: Status: Acute DS: Summary Hospital Course Hospital Course: Date of Service: 08/16/22 Attending physician on admission: Dirk Al Chief Complaint: Left Flank Pain Pt is a 52-year-old male with a PMH significant for?HTN, renal cancer of right kidney s/p ablation in 2018 with tumor recurrence in 2021 s/p cauterization, and hx of nephrolithiasis who presents to the ED with?left flank pain radiating to his left groin.? His also experienced nausea, vomiting, chills.? Patient was seen at the ED 3 days prior on 08/13/2022 for similar complaints. Pt first noticed dysuria and hematuria on 08/12/2022. CT then showed mild hydroureteronephrosis likely secondary to a 2 mm calculus at or just below the left uretrovesicular junction.? Repeat CT scan today showed a 6 mm stone in the left ureterovesicular junction with an additional punctate stone within the distal left ureter and unchanged mild left hydroureteronephrosis, and hepatic steatosis.? ED contacted Dr. Araujo from Urology, who is scheduled to see the patient tomorrow and perform procedure.? Of note, patient is a Mosque and is thus incapable of receiving any blood products. Labs were significant for a BUN of 25, creatinine elevated at 3.40, and chronic transaminitis of AST of 40 and ALT of 50.? In the ED patient was treated IVF, ketorolac and Dilaudid. Pt will be admitted to the hospital for JAYSON likely secondary to obstructive uropathy. 52-year-old male with a PMH significant for?HTN, renal cancer of right kidney s/p ablation in 2018 with tumor recurrence in 2021 s/p cauterization, and hx of nephrolithiasis who presents to the ED with?left flank pain radiating to his left groin. JAYSON likely secondary to obstructive uropathy, CT abdomen showed 8 mm left ureteric stone with progressive hydroureteronephrosis, creatinine 3.40, elevated from 1.69, 3 days prior, patient admitted to medical floor placed on IV fluids, IV analgesics and was continued on Flomax subsequently patient underwent left distal stone intervention postprocedure patient discharge by Dr. Araujo. Transaminitis Chronic, stable, likely secondary to hepatic steatosis HTN Continue amlodipine, Hold lisinopril and hydrochlorothiazide due to JAYSON, recommend to follow BMP and resume blood pressure medications. Time Spent with Patient Time attestation: Total time managing care of this patient today ____ minutes. Discharge coordination time: Greater than 30 minutes Quality: Safe Use of Opioids Does Pt have an Active Cancer Diagnosis on the Problem List?: No Quality: Stroke Does the patient have a stroke diagnosis?: No Physical Exam Vital Signs: Vital Signs: Last Vital Signs Temp 98.6 F 08/17/22 15:49 Pulse 90 08/17/22 15:49 Resp 20 08/17/22 15:49 BP 140/67 H 08/17/22 15:49 Pulse Ox 99 08/17/22 15:49 O2 Del Method Room Air 08/17/22 15:49 BMI result Body Mass Index 29.2 Const: Other: General resting co mfortably in no ac [place] distress.? Nec k? supple no JVD. CVS? regular rate rhythm, Respirator y lungs clear to a uscultation, no re spiratory distress , no wheeze, no rh onchi. Gastrointes tinal abdomen soft , non tender, anastasiia l sounds audible, no guarding , no r igidity.? Extremi ties no edema. Rahul ro nonfocal Skin n o rash Discharge Plan Discharge Anticipated Discharge Date/Time: 08/17/22 19:57 Patient Disposition: Home, Self-Care Discharge Diagnosis: ureteric stone Referrals: Physician,Unknown J [Primary Care Provider] - 1 Week Discharge Medications: Continued tamsulosin [Flomax] 0.4 mg capsule 0.4 mg PO BEDTIME Qty: 4 0RF ketorolac 10 mg tablet 10 mg PO Q6H PRN (Reason: pain) 5 Days Qty: 10 0RF Rx Instructions: Patient received Toradol in the emergency room. amlodipine 5 mg tablet 5 mg PO DAILY hydrochlorothiazide 25 mg tablet 25 mg PO DAILY lisinopril 40 mg tablet 40 mg PO DAILY Discharge Orders: Discharge Order (Routine); Ordered 08/17/22 Ordered By: Meño Araujo Diet: Advance to usual diet Activity on Discharge: As tolerated Stand Alone Forms: Patient Portal Discharge page Care Plan Goals: stones Health Concerns: stones Plan of Treatment: stones Assessment: stones Discharge Date/Time: 08/17/22 20:05
== END 2022-08-17 20:05 | disposition home or self-care (01) | DRG 465 ==
LOC: HO.ED 14:29 → HO.EDOVER 14:47 → HO.S3 14:56
PROVIDERS: Nurse Practitioner Family; Admitting Provider Student in an Organized Health Care Education/Training Program; Emergency Provider Emergency Medicine Emergency Medical Services; PCP Family Medicine; Visit Provider Hospitalist
DX: N13.0 Hydronephrosis with ureteropelvic junction obstruction (principal); N17.9 Acute kidney failure, unspecified; K76.0 Fatty (change of) liver, not elsewhere classified; I10 Essential (primary) hypertension; Z85.528 Personal history of other malignant neoplasm of kidney; Z88.5 Allergy status to narcotic agent; Z88.6 Allergy status to analgesic agent; Z79.899 Other long term (current) drug therapy
CPT/HCPCS: 36415; 74176; 80048; 80053; 81001; 83735; 85025; 99285; J1170; J1885; J1956; J2405

== ENCOUNTER 2023-01-17 15:07 | Emergency (ER) | payer OTHER, SELFPAY ==
--- NOTE | ~2023-01-17 | XR_ITS ---
EXAMINATION:XR foot LT 2V, XR ankle LT min 3V VIEWS ACQUIRED: Frontal lateral oblique left foot, frontal lateral 2 obliques ankle. CLINICAL INFORMATION: Reason for Exam Can fell on foot COMPARISON: None available at the time of this dictation. FINDINGS: Plate and multiple screws hardware distal tibia are intact. Old fracture has healed. No evidence of acute new fractures or dislocation. Ankle mortise is preserved. Talar dome is intact. Subtalar joint is normal. There is no evidence of acute fracture or dislocation. Intertarsal, tarsometatarsal, metatarsophalangeal and interphalangeal joints are intact. Surrounding soft tissues is normal. , Soft tissue swelling around lateral malleolus. XR/XR foot LT 2V IMPRESSION: * Soft tissue swelling around lateral malleolus. * No radiographic evidence of acute fracture. * Plate and screws hardware distal tibia are intact.
--- NOTE | ~2023-01-17 | XR_ITS ---
EXAMINATION:XR foot LT 2V, XR ankle LT min 3V VIEWS ACQUIRED: Frontal lateral oblique left foot, frontal lateral 2 obliques ankle. CLINICAL INFORMATION: Reason for Exam Can fell on foot COMPARISON: None available at the time of this dictation. FINDINGS: Plate and multiple screws hardware distal tibia are intact. Old fracture has healed. No evidence of acute new fractures or dislocation. Ankle mortise is preserved. Talar dome is intact. Subtalar joint is normal. There is no evidence of acute fracture or dislocation. Intertarsal, tarsometatarsal, metatarsophalangeal and interphalangeal joints are intact. Surrounding soft tissues is normal. , Soft tissue swelling around lateral malleolus. XR/XR ankle LT min 3V IMPRESSION: * Soft tissue swelling around lateral malleolus. * No radiographic evidence of acute fracture. * Plate and screws hardware distal tibia are intact.
[2023-01-17 15:14] VITALS: BP 126/78; PULSE 83; RESP 18; TEMP 37.2; O2SAT 98; BMI 28.2
--- NOTE | 2023-01-17 15:17 | ED_ITS ---
HPI - General Adult General Chief complaint: Extremity Injury, Lower Stated complaint: L swollen foot Time Seen by Provider: 01/17/23 15:20 Source: patient and family Mode of arrival: wheelchair Limitations: no limitations History of Present Illness HPI narrative: 52-year-old male with a history of previous surgery on left tibia with hardware in place presents to the ER with complaints of left foot and ankle pa in. Per patient he had a twisting injury 1 week ago. He had pain for several days but then this seemed to get better. 3 days ago he dropped a can of heavy chili on his left foot. Since then he has had increasing pain, swelling and warmth. Patient does not believe that he had any abrasion or open wounds. He denies any fevers or chills. Related Data Home Medications Medication Instructions Recorded Confirmed amlodipine 5 mg tablet 5 mg PO DAILY 08/16/22 08/16/22 hydrochlorothiazide 25 mg tablet 25 mg PO DAILY 08/16/22 08/16/22 lisinopril 40 mg tablet 40 mg PO DAILY 08/16/22 08/16/22 Previous Rx's Medication Instructions Recorded ketorolac 10 mg tablet 10 mg PO Q6H PRN pain 5 days #10 08/13/22 tabs tamsulosin 0.4 mg capsule (Flomax) 0.4 mg PO BEDTIME #4 caps 08/13/22 cephalexin 500 mg capsule 500 mg PO BID #20 caps 01/17/23 doxycycline monohydrate 100 mg 100 mg PO BID #20 caps 01/17/23 capsule Allergies Allergy/AdvReac Type Severity Reaction Status Date / Time oxycodone [From Percocet] Allergy Itching Verified 08/16/22 10:35 Review of Systems Review of Systems: Yes all other systems are reviewed and are negative Constitutional: Constitutional: Reports no additional constitutional complaints, Denies body ache(s), Denies chills, Denies fever(s), Denies headache(s) and Denies weakness Eyes: Eyes: Reports no additional eye complaints and Denies change in vision ENT: Reports system reviewed and no additional complaints, except as documented, Denies dizziness, Denies headache(s), Denies nasal congestion, Denies nasal discharge and Denies neck pain Cardiovascular: Cardiovascular: Reports no additional cardiovascular complaints, Denies chest pain, Denies leg edema and Denies dyspnea Respiratory: Respiratory: Reports no additional respiratory complaints, Denies cough and Denies dyspnea Gastrointestinal: Gastrointestinal: Reports no additional gastrointestinal complaints, Denies abdominal pain, Denies diarrhea, Denies nausea and Denies vomiting Genitourinary: Genitourinary: Denies urinary incontinence Musculoskeletal: Musculoskeletal: Reports no additional musculoskeletal complaints, Denies back pain, Reports arthralgias, Reports joint swelling, Denies limited range of motion, Denies neck pain, Denies numbness and Denies tingling Integumentary/Breasts: Skin/Breast: Reports system reviewed and no additional complaints, except as docu, Reports swelling, Reports erythema and Denies rash Neurologic: Reports system reviewed and no additional complaints, except as documented, Denies Abnormal speech present, Denies dizziness, Denies headache(s), Denies numbness, Denies tingling and Denies weakness PMFSH Past Medical History Attestation statement: The following information was validated with the patient. Source: old records reviewed and nursing notes reviewed Social History Social History Household Members: Spouse Housing: House Do you presently have visiting nurse or other home services: No Alcohol intake: unknown Patient Tobacco Use Status: Never used Tobacco Second Hand Smoke Exposure: No Advance Directives: No Advance Directives Information Provided: No service: No Current occupational status: disabled Physical Exam ED Vital Signs: Vital Signs - 24 hr 01/17/23 15:14 Temperature 98.9 F Pulse Rate 83 Respiratory Rate 18 Blood Pressure 126/78 Pulse Oximetry 98 Oxygen Delivery Method Room Air BMI result Body Mass Index 28.2 Const General: cooperative, healthy appearing, comfortable and no acute distress Orientation/consciousness: patient oriented x3 Limitations: no limitations [facility] Head: Yes normal to inspection Ears: hearing grossly normal bilaterally General nose exam: Normal external nose present Face and sinus: Yes normal facial exam Mouth: Normal oral and palatal mucosa present Throat: Yes posterior oropharynx normal Eyes General: appearance normal, both eyes and all related structures Pupils: Equal, round and reactive pupils present Neck Neck: Yes normal visual inspection Chest Chest palpation & inspection: normal inspection of the chest Resp Effort & Inspection: normal respiratory effort Auscultation: clear to auscultation bilaterally Cardio Rate: regular rate Rhythm: regular rhythm Peripheral pulses: Peripheral pulses 2+ throughout GI Inspection: Yes normal to inspection Palpation (GI): Soft to palpation and nontender Auscultation: normal bowel sounds Back/Spine/Pelvis Thoracic/Lumbar Spine: thoracic and lumbar spine normal to inspection Skin General skin exam: no rashes or lesions noted Neuro General: patient oriented x3, no focal motor deficits and normal sensation to monofilament Cranial nerves: Yes Equal, round and reactive pupils present Cognition (Neuro): normal cognition Speech: No Abnormal speech present Gait exam (Neuro): Normal gait present Motor exam (neuro): 5/5 motor strength present throughout Extrem Other: To the left foot to there is swelling over the dorsal and medial aspect. There is erythema over the dorsal and medial aspect. There is warmth over the dorsal and medial aspect. there is no swelling, erythema or warmth over the ankle or left lower extremity. There are normal DP and PT pulses. Sensation is intact distally. Range of motion of the ankle is normal both passively and actively. Course Course Course Narrative: RME: 52 yold male presents to the ED for left foot/ankle pain after can fell on foot 3 days ago. patient twisted ankle 1 weeks ago. patient denies any other trauma. Xrays ordered Reevaluation(s) Reevaluation #1: x-ray show stable hardware, no radiographic evidence of acute fracture with soft tissue swelling noted. Patient be discharged home with oral antibiotics, Melecio wrap and crutches for ambulation. Reviewed worrisome signs and symptoms when to return to the emergency room. Comfortable plan for discharge home. Procedures Orthopedic Splinting/Casting Injury #1: Lower Extremity Injury Location: foot Lower Extremity Immobilizer: Melecio wrap Other Orthopedic Equipment: crutches Medical Decision Making Medical Decision Making MDM Narrative: 52-year-old male with a history of previous surgery on left tibia with hardware in place presents to the ER with complaints of left foot and ankle pa in. Per patient he had a twisting injury 1 week ago. He had pain for several days but then this seemed to get better. 3 days ago he dropped a can of heavy chili on his left foot. Since then he has had increasing pain, swelling and warmth. Patient does not believe that he had any abrasion or open wounds. He denies any fevers or chills. To the left foot to there is swelling over the dorsal and medial aspect. There is erythema over the dorsal and medial aspect. There is warmth over the dorsal and medial aspect. there is no swelling, erythema or warmth over the ankle or left lower extremity. There are normal DP and PT pulses. Sensation is intact distally. Range of motion of the ankle is normal both passively and actively. Patient had x-rays ordered from triage I will review. clinically patient has what appears to be a cellulitis the foot although I do not appreciate any abrasion or open wound. Pain may have had an abrasion had already healed. He is nontoxic, afebrile. there is no evidence of septic joint were concern for necrotizing fasciitis or compartment syndrome. His compartments are soft and compressible. The cellulitis is not circumferential. Therefore I believe the patient can be discharged home with oral antibiotics with strict return precautions. Differential Diagnosis Differential Diagnoses: The differential diagnosis associated with the presentation includes Cellulitis, contusion, fracture low concern for vascular injury, dislocation, necrotizing fasciitis, compart ment syndrome Admission/Observation Consideration of admission/observation: Escalation of care including admission/observation considered afebrile, nontoxic with a non circumferential cellulitis which does not require IV antibiotics and be managed outpatient with oral antibiotics Independent Interpretation I performed an independent interpretation of an: Plain X-Ray Interpretation: I independently reviewed the x-ray and agree with the radiology report Radiology Impression Discussion of test interpretation with radiology: I have reviewed the radiologist's reading. Radiologist Impression: [address] [address] XRay Report Signed Patient: Yoan Martins MR#: [id number] : 1970 Acct:[id number] Age/Sex: 52 / M ADM Date: 01/17/23 Loc: .ED Attending Dr: Ordering Physician: Rudolph Perez Date of Service: 01/17/23 Procedure(s): XR ankle LT min 3V Accession Number(s): [id number] cc: Rudolph Perez; Physician,Unknown ~ EXAMINATION:XR foot LT 2V, XR ankle LT min 3V VIEWS ACQUIRED: Frontal lateral oblique left foot, frontal lateral 2 obliques ankle. CLINICAL INFORMATION: Reason for Exam Can fell on foot COMPARISON: None available at the time of this dictation. FINDINGS: Plate and multiple screws hardware distal tibia are intact. Old fracture has healed. No evidence of acute new fractures or dislocation. Ankle mortise is preserved. Talar dome is intact. Subtalar joint is normal. There is no evidence of acute fracture or dislocation. Intertarsal, tarsometatarsal, metatarsophalangeal and interphalangeal joints are intact. Surrounding soft tissues is normal. , Soft tissue swelling around lateral malleolus. XR/XR ankle LT min 3V IMPRESSION: * Soft tissue swelling around lateral malleolus. * No radiographic evidence of acute fracture. * Plate and screws hardware distal tibia are intact. Independent Historian Clinical information obtained from an independent historian. History obtained from or confirmed by: Spouse Prescription Management I considered prescription management with: Antibiotic Discharge Plan Discharge Clinical Impression: Cellulitis Patient Disposition: Home, Self-Care Instructions: Cellulitis (ED) Additional Instructions: Rest, ice, compression use the crutches for ambulation Take Motrin or Tylenol for pain Your x-rays show no signs of fracture. I do believe that you have cellulitis. Please take the antibiotics as prescribed. Please return for any increasing redness, increasing swelling, increasing pain, fevers or chills. Prescriptions: New cephalexin 500 mg capsule 500 mg PO BID Qty: 20 0RF doxycycline monohydrate 100 mg capsule 100 mg PO BID Qty: 20 0RF No Action tamsulosin [Flomax] 0.4 mg capsule 0.4 mg PO BEDTIME Qty: 4 0RF ketorolac 10 mg tablet 10 mg PO Q6H PRN (Reason: pain) 5 Days Qty: 10 0RF Rx Instructions: Patient received Toradol in the emergency room. amlodipine 5 mg tablet 5 mg PO DAILY hydrochlorothiazide 25 mg tablet 25 mg PO DAILY lisinopril 40 mg tablet 40 mg PO DAILY Interventions: ED Discharge Assessment Last Done: 01/17/23 16:30 Discharge Date/Time: 01/17/23 16:31
== END 2023-01-17 16:31 | disposition home or self-care (01) ==
PROVIDERS: Emergency Provider Emergency Medicine
DX: L03.116 Cellulitis of left lower limb (principal); M25.572 Pain in left ankle and joints of left foot; R60.0 Localized edema; Z79.899 Other long term (current) drug therapy
CPT/HCPCS: 73610; 73620; 99282; 99283; 99284

== ENCOUNTER 2023-02-21 07:52 | Emergency (ER) | payer OTHER, SELFPAY ==
[2023-02-21 08:00] VITALS: BP 114/81; PULSE 90; RESP 18; TEMP 36.6; O2SAT 98; BMI 28.1
--- NOTE | 2023-02-21 08:40 | ED_ITS ---
HPI - Extremity Problem General Chief complaint: Extremity Injury, Upper Stated complaint: r hand swelling Time Seen by Provider: 02/21/23 08:12 Source: patient and family Mode of arrival: ambulatory History of Present Illness HPI Narrative: 52-year-old male presents with worsening right hand pain and swelling with erythema, maximal pain at the right thumb MCP is been worsening since Wednesday. Patient seen on 01/17 for similar presentation to the left foot. Related Data Home Medications Medication Instructions Recorded Confirmed amlodipine 5 mg tablet 5 mg PO DAILY 08/16/22 08/16/22 hydrochlorothiazide 25 mg tablet 25 mg PO DAILY 08/16/22 08/16/22 lisinopril 40 mg tablet 40 mg PO DAILY 08/16/22 08/16/22 Previous Rx's Medication Instructions Recorded ketorolac 10 mg tablet 10 mg PO Q6H PRN pain 5 days #10 08/13/22 tabs tamsulosin 0.4 mg capsule (Flomax) 0.4 mg PO BEDTIME #4 caps 08/13/22 cephalexin 500 mg capsule 500 mg PO BID #20 caps 01/17/23 doxycycline monohydrate 100 mg 100 mg PO BID #20 caps 01/17/23 capsule Allergies Allergy/AdvReac Type Severity Reaction Status Date / Time oxycodone [From Percocet] Allergy Itching Verified 02/21/23 08:00 Review of Systems 2 Review of Systems: Pertinent positives and negatives as stated in HPI PMFSH Past Medical History Source: nursing notes reviewed Social History Social History Household Members: Spouse Housing: House Do you presently have visiting nurse or other home services: No Alcohol intake: unknown Patient Tobacco Use Status: Never used Tobacco Second Hand Smoke Exposure: No Advance Directives: Yes Advance Directives Information Provided: Yes Advance Directives on File: No service: No Current occupational status: disabled Physical Exam 2 Vital Signs: Vital Signs: Last Vital Signs Temp 98 F 02/21/23 08:00 Pulse 90 02/21/23 08:00 Resp 18 02/21/23 08:00 BP 114/81 02/21/23 08:00 Pulse Ox 98 02/21/23 08:00 BMI result Body Mass Index 28.1 VITAL SIGNS: Reviewed. GENERAL: Well developed, well nourished, in no acute distress. HEAD: Normocephalic/atraumatic EYES: PERRLA, EOMI EARS: Ext canals without abnormality NOSE: Nares patent bilateral OROPHARYNX: no oral lesions noted, posterior pharynx clear NECK: Supple, no adenopathy LUNGS: Normal breath sounds. No adventitious sounds or accessory muscle use. SpO2<98> CARDIOVASCULAR: Regular rate and rhythm without noted murmurs ABDOMEN: Soft, non-tender, non-distended with bowel sounds. MUSCULOSKELETAL: No tenderness, deformities, or effusions noted on gross inspection. EXTREMITIES: No cyanosis, clubbing or edema. RIGHT HAND: Dorsum erythema with ttp at MCP of pollux SKIN: Inspection of the skin reveals no rashes NEUROLOGIC: Alert and oriented x 4. Strength and sensation to light touch were grossly intact x 4. Medical Decision Making Medical Decision Making MDM Narrative: 52-year-old male with history and clinical presentation, DDX: Gout, pseudogout especially as patient also has significant history of multiple renal stones. If patient's basic metabolic panel demonstrates continued evidence of CKD will treat with steroids. I reviewed all investigations and BMP demonstrates that creatinine clearance 30- 80 and will proceed with treatment of gout flare with colchicine and instruct patient to follow-up with primary care doctor for additional workup as well as repeat basic metabolic and encourage increase drinking of water. Differential Diagnosis Differential Diagnoses: The differential diagnosis associated with the presentation includes Please see the discussion above Admission/Observation Consideration of admission/observation: Escalation of care including admission/observation considered Please see the discussion above Lab Data 02/21/23 08:56 Labs: Lab Results 02/21/23 Range/Units 08:56 Sodium 137 (135-145) mmol/L Potassium 3.7 (3.3-5.1) mmol/L Chloride 97 (96-108) mmol/L Carbon Dioxide 27 (22-29) mmol/L Anion Gap 17 (12-20) BUN 16 (9-16) mg/dL Creatinine 1.72 H (0.5-1.4) mg/dL Estim Creat Clear Calc 46.3 Estimated GFR 42 Random Glucose 163 H (60-115) mg/dL Calcium 10.2 D (8.4-10.2) mg/dL Discharge Plan Discharge Clinical Impression: Gout flare Patient Disposition: Home, Self-Care Instructions: Gout (ED), Low Purine Diet (ED) Additional Instructions: 1. Resume all home medications as prescribed. Increase your water intake. 2. Take the 0.6 mg colchicine tablet 1 hour after you were given the 1.2 mg colchicine tablet. 3. Follow-up with your primary care doctor by calling the office on Wednesday morning and setting up an appointment for re-evaluation and further outpatient management to include repeating a chemistry panel within the next week. Return to the ER for any worsening symptoms. Prescriptions: No Action cephalexin 500 mg capsule 500 mg PO BID Qty: 20 0RF doxycycline monohydrate 100 mg capsule 100 mg PO BID Qty: 20 0RF tamsulosin [Flomax] 0.4 mg capsule 0.4 mg PO BEDTIME Qty: 4 0RF ketorolac 10 mg tablet 10 mg PO Q6H PRN (Reason: pain) 5 Days Qty: 10 0RF Rx Instructions: Patient received Toradol in the emergency room. amlodipine 5 mg tablet 5 mg PO DAILY hydrochlorothiazide 25 mg tablet 25 mg PO DAILY lisinopril 40 mg tablet 40 mg PO DAILY
[2023-02-21 09:11] LABS: Anion Gap 17 (12-20); Blood Urea Nitrogen 16 mg/dL (9-16); Calcium 10.2 mg/dL (8.4-10.2); Carbon Dioxide 27 mmol/L (22-29); Chloride 97 mmol/L (96-108); Creatinine Clr Calc Pharmacy 46.3; Estimated Glomerular Filt Rate 42; Glucose Random 163 mg/dL (60-115); Potassium 3.7 mmol/L (3.3-5.1); Sodium 137 mmol/L (135-145)
[2023-02-21 09:24] VITALS: BP 142/83; PULSE 81; RESP 16; TEMP 36.7; O2SAT 98
[2023-02-21] MEDS: Colchicine 0.6 MG TABLET 1.2 MG PO (10:04)
[2023-02-21] MEDS: Colchicine 0.6 MG TABLET PO (10:04)
== END 2023-02-21 10:09 | disposition home or self-care (01) ==
PROVIDERS: Emergency Provider Student in an Organized Health Care Education/Training Program
DX: M10.041 Idiopathic gout, right hand (principal); Z79.899 Other long term (current) drug therapy
CPT/HCPCS: 36415; 80048; 99284

== ENCOUNTER 2024-01-23 13:27 | Emergency (ER) | payer MEDICARE, MEDICAID, SELFPAY ==
--- NOTE | ~2024-01-23 | XR_ITS ---
EXAMINATION: XR CHEST CLINICAL INFORMATION: Chest pain COMPARISON: None available. TECHNIQUE: 2 views of the chest were obtained. FINDINGS: No significant abnormality is noted involving the heart, lungs, mediastinum, bony thorax or soft tissues. XR/XR chest 2V IMPRESSION: Unremarkable examination. Electronically signed by: Alirio Marinelli MD 01/23/2024 03:34 PM EDT RP
--- NOTE | 2024-01-23 13:28 | ECG_ITS ---
Test Reason : CHEST PAIN Blood Pressure : / mmHG Vent. Rate : 140 BPM Atrial Rate : 140 BPM P-R Int : 132 ms QRS Dur : 080 ms QT Int : 288 ms P-R-T Axes : 013 033 031 degrees QTc Int : 439 ms Sinus tachycardia Abnormal ECG No previous ECGs available Referred By: Ana Vargas Electronically Signed By:CLINT HOFFMAN
[2024-01-23 13:38] VITALS: BP 130/84; PULSE 133; RESP 20; TEMP 36.4; O2SAT 98; BMI 27.5
--- NOTE | 2024-01-23 13:38 | ED_ITS ---
HPI - Chest Pain General Chief Complaint: Chest Pain Stated Complaint: sob-cp Time Seen by Provider: 01/23/24 16:12 Source: patient Limitations: no limitations History of Present Illness ED Provider: Risa Gomes PA-C HPI narrative: 53-year-old male with a history of hypertension presents with chest discomfort prior to arrival. Pain over left anterior chest, nonradiating, unable to describe the nature of his discomfort. Associated racing heart rate and the sensory ?can not take a deep breath?. Denies recent cough cold symptoms or fevers. Denies diaphoresis, nausea, vomiting. Denies the use of excessive stimulants such as caffeine, he denies use of cocaine, he does state that he had been drinking alcohol heavily the day prior. Denies unilateral calf pain or swelling. Related Data Home Medications ?Medication ?Instructions ?Recorded ?Confirmed amlodipine 5 mg tablet 5 mg PO DAILY 08/16/22 08/16/22 hydrochlorothiazide 25 mg tablet 25 mg PO DAILY 08/16/22 08/16/22 lisinopril 40 mg tablet 40 mg PO DAILY 08/16/22 08/16/22 Previous Rx's ?Medication ?Instructions ?Recorded ketorolac 10 mg tablet 10 mg PO Q6H PRN pain 5 days #10 08/13/22 tabs tamsulosin 0.4 mg capsule (Flomax) 0.4 mg PO BEDTIME #4 caps 08/13/22 cephalexin 500 mg capsule 500 mg PO BID #20 caps 01/17/23 doxycycline monohydrate 100 mg 100 mg PO BID #20 caps 01/17/23 capsule hydroxyzine HCl 50 mg tablet 50 mg PO QID PRN anxiety #20 tabs 01/23/24 Allergies Allergy/AdvReac Type Severity Reaction Status Date / Time oxycodone [From Percocet] Allergy Itching Verified 01/23/24 13:40 Review of Systems 2 Review of Systems: Yes all other systems are reviewed and are negative Constitutional: Constitutional: Denies fever(s) Cardiovascular: Cardiovascular: Reports chest pain, Reports palpitations and Reports dyspnea Respiratory: Respiratory: Denies cough and Reports dyspnea Gastrointestinal: Gastrointestinal: Denies abdominal pain, Denies nausea and Denies vomiting Endocrine: Endocrine: Reports palpitations PMFSH Past Medical History Attestation statement: The following information was validated with the patient. Social History Social History Household Members: Spouse Housing: House Do you presently have visiting nurse or other home services: No Alcohol intake: unknown Patient Tobacco Use Status: Never used Tobacco Smoked in Last 30 Days: No Second Hand Smoke Exposure: No Use of substances other than those prescribed or required for medical reasons: No Advance Directives: No Advance Directives Information Provided: No service: No Current occupational status: disabled Physical Exam 2 Vital Signs: Vital Signs: Last Vital Signs Temp 97.8 F 01/23/24 21:21 Pulse 91 01/23/24 21:21 Resp 15 01/23/24 21:21 BP 140/86 H 01/23/24 21:21 Pulse Ox 96 01/23/24 21:21 O2 Del Method Room Air 01/23/24 21:21 BMI result Body Mass Index 27.5 Const: Other: Alert, well in appearance Orientation/consciousness: patient oriented x3 Resp: Effort & Inspection: normal respiratory effort Cardio: Other: Normal peripheral perfusion Skin: Other: Warm dry no rash Neuro: General: patient oriented x3, no focal motor deficits and CN's II-XI intact bilaterally Psych: Other: Cooperative, however anxious Course Course Course Narrative: This is an RME performed by Evelina Vargas CNP: Additional HPI, ROS, PE not included below will be deferred to primary provider. Patient is a 53-year-old male with past medical history of hypertension presents emergency department for evaluation of chest pain. He states that he had an episode of left anterior chest pain earlier today that lasted approximately 10-15 minutes, he went for a walk and his symptoms resolved. Then he reports return of left anterior chest pain with onset chest prior to arrival, associated dizziness, shortness of breath and palpitations. This episode of pain feels worse than the episode earlier today. Endorses associated shortness of breath and palpitations. On examination he appears quite anxious, tachycardic to the 130s, Plan: CXR, labs, EKG Medications Administered Discontinued Medications Generic Name Dose Route Start Last Admin Trade Name Freq PRN Reason Stop Dose Admin Hydroxyzine HCl 50 mg 01/23/24 18:56 01/23/24 19:20 Hydroxyzine Hcl 50 Mg Tablet PO 01/23/24 18:57 50 mg ONCE ONE Administration Sodium Chloride 1,000 mls @ 999 mls/hr 01/23/24 17:45 01/23/24 20:41 Ns IV 01/23/24 18:45 Infused .Q1H1M MARY Infusion Magnesium Sulfate 2 gm in 50 mls @ 25 mls/hr 01/23/24 17:35 01/23/24 19:20 Magnesium Sulfate/H2o IV 01/23/24 19:34 Infused ONCE ONE Infusion Lorazepam 1 mg 01/23/24 19:37 01/23/24 19:41 Lorazepam 2 Mg/Ml Vial IVPUSH 01/23/24 19:38 1 mg ONCE ONE Administration Medical Decision Making Medical Decision Making [facility] Narrative: 53-year-old male with a history of hypertension presents with chest discomfort prior to arrival. Pain over left anterior chest, nonradiating, unable to describe the nature of his discomfort. Associated racing heart rate and the sensory ?can not take a deep breath?. Denies recent cough cold symptoms or fevers. Denies diaphoresis, nausea, vomiting. Denies the use of excessive stimulants such as caffeine, he denies use of cocaine, he does state that he had been drinking alcohol heavily the day prior. Denies unilateral calf pain or swelling. Problem: Anxiety and hypertension History: Per patient I have considered the following differential diagnoses: Anxiety/panic attack, dehydration, ACS, PE Plan: ACS was considered, however I do not think his symptoms are consistent with ACS. In speaking with the patient, it seems as if he has detecting the palpitations. Screening labs including cardiac enzymes, EKG and chest x-ray were obtained. We will be giving IV fluid. I do feel his excessive alcohol use was the trigger for his tachycardia. I am considering PE, to note, he has no objective signs on exam for DVT, we will add a D-dimer. I think the patient is nervous over his palpitations, he keeps looking at the monitor. I will be sending him with a list of outpatient resources for him to initiate therapy. I have independently reviewed the following tests: Chest x-ray:XR CHEST CLINICAL INFORMATION: Chest pain COMPARISON: None available. TECHNIQUE: 2 views of the chest were obtained. FINDINGS: No significant abnormality is noted involving the heart, lungs, mediastinum, bony thorax or soft tissues. XR/XR chest 2V IMPRESSION: Unremarkable examination. Electronically signed by: Alirio Marinelli MD 01/23/2024 03:34 PM EDT RP Labs: Slight leukocytosis, not anemic, magnesium 1.6, otherwise no additional electrolyte abnormalities, viral panel negative, creatinine baseline, D-dimer 166, troponin x2 flat EKG: Sinus tachycardia, rate of 140, no ischemic changes no ectopy, QTC 439 Lab Data 01/23/24 13:51 01/23/24 13:51 Labs: Lab Results 01/23/24 01/23/24 01/23/24 Range/Units 13:51 13:52 17:58 WBC 10.9 H (4.8-10.8) X10*3/uL RBC 4.43 L (4.60-5.80) X10*6/uL Hgb 13.7 L (14.0-18.0) g/dl Hct 37.8 L (42.0-52.0) % MCV 85.3 (80.0-98.0) fL MCH 30.9 (27.0-33.0) pg MCHC 36.2 H (31.0-36.0) g/dl RDW 12.7 (11.0-16.0) % Plt Count 322 (160-400) X10*3/uL MPV 8.5 L (9.4-12.4) fL Immature Gran % (Auto) 0.4 (0.0-0.4) % Neut % (Auto) 83.3 H (45-73) % Lymph % (Auto) 8.9 L (20-40) % [place] % (Auto) 7.0 (2-11) % Eos % (Auto) 0.0 (0-4) % Baso % (Auto) 0.4 (0-2) % Lymph # (Auto) 1.0 L (1.2-4.9) X10*3/uL [place] # (Auto) 0.8 (0.1-1.2) X10*3/uL Eos # (Auto) 0.0 (0.0-0.4) X10*3/uL Baso # (Auto) 0.0 (0.0-0.2) X10*3/uL Abs Immat Gran (auto) 0.04 H (0.00-0.03) X10*3/uL Absolute Neuts (auto) 9.1 H (2.0-8.3) x10*3/uL Absolute Nucleated RBC 0.000 (0.0-0.012) X10*3/uL Nucleated RBC % (auto) 0.0 (0.0-0.2) /100WBC PT 11.7 (10.9-12.4) SEC INR 1.0 (0.9-1.1) D-Dimer High Sensitivty 166 NG/ML Sodium 139 (135-145) mmol/L Potassium 3.6 (3.3-5.1) mmol/L Chloride 101 (96-108) mmol/L Carbon Dioxide 22 (22-29) mmol/L Anion Gap 20 (12-20) BUN 20 H (9-16) mg/dL Creatinine 1.65 H (0.5-1.4) mg/dL Estim Creat Clear Calc 48.9 Estimated GFR 44 Random Glucose 178 H (60-115) mg/dL Calcium 9.9 (8.4-10.2) mg/dL Magnesium 1.6 (1.6-2.6) mg/dL Total Bilirubin 0.6 (0.0-1.0) mg/dL AST 60 H (5-37) U/L ALT 60 H (0-40) U/L Alkaline Phosphatase 67 (39-117) U/L Troponin I High Sens 3.6 5.3 (<3.5-35.0) ng/L Total Protein 7.9 (6.5-8.0) g/dL Albumin 4.7 (3.5-5.0) g/dL Urine Color Urine Appearance Urine pH (5.0-9.0) Ur Specific [place] (1.005-1.025) Urine Protein (Neg-Trace) mg/dL Urine Glucose (UA) (Negative) mg/dL Urine Ketones (Negative) mg/dL Urine Blood (Negative) Urine Nitrite (Negative) Ur Leukocyte Esterase (Negative) Urine RBC (0-2) /HPF Urine WBC (0-5) /HPF Ur Squamous Epith Cells (0-2) /HPF Urine Bacteria (None Seen) Hyaline Casts (0-2) /LPF Influenza Type A (PCR) NEGATIVE (Negative) Influenza Type B (PCR) NEGATIVE (Negative) RSV RNA Qual (PCR) NEGATIVE (Negative) SARS-CoV-2 RNA (RT-PCR) NEGATIVE (Negative) 01/23/24 Range/Units 19:22 WBC (4.8-10.8) X10*3/uL RBC (4.60-5.80) X10*6/uL Hgb (14.0-18.0) g/dl Hct (42.0-52.0) % MCV (80.0-98.0) fL MCH (27.0-33.0) pg MCHC (31.0-36.0) g/dl RDW (11.0-16.0) % Plt Count (160-400) X10*3/uL MPV (9.4-12.4) fL Immature Gran % (Auto) (0.0-0.4) % Neut % (Auto) (45-73) % Lymph % (Auto) (20-40) % [place] % (Auto) (2-11) % Eos % (Auto) (0-4) % Baso % (Auto) (0-2) % Lymph # (Auto) (1.2-4.9) X10*3/uL [place] # (Auto) (0.1-1.2) X10*3/uL Eos # (Auto) (0.0-0.4) X10*3/uL Baso # (Auto) (0.0-0.2) X10*3/uL Abs Immat Gran (auto) (0.00-0.03) X10*3/uL Absolute Neuts (auto) (2.0-8.3) x10*3/uL Absolute Nucleated RBC (0.0-0.012) X10*3/uL Nucleated RBC % (auto) (0.0-0.2) /100WBC PT (10.9-12.4) SEC INR (0.9-1.1) D-Dimer High Sensitivty NG/ML Sodium (135-145) mmol/L Potassium (3.3-5.1) mmol/L Chloride (96-108) mmol/L Carbon Dioxide (22-29) mmol/L Anion Gap (12-20) BUN (9-16) mg/dL Creatinine (0.5-1.4) mg/dL Estim Creat Clear Calc Estimated GFR Random Glucose (60-115) mg/dL Calcium (8.4-10.2) mg/dL Magnesium (1.6-2.6) mg/dL Total Bilirubin (0.0-1.0) mg/dL AST (5-37) U/L ALT (0-40) U/L Alkaline Phosphatase (39-117) U/L Troponin I High Sens (<3.5-35.0) ng/L Total Protein (6.5-8.0) g/dL Albumin (3.5-5.0) g/dL Urine Color Yellow Urine Appearance Clear Urine pH 5.5 (5.0-9.0) Ur Specific [place] 1.020 (1.005-1.025) Urine Protein Trace (Neg-Trace) mg/dL Urine Glucose (UA) Negative (Negative) mg/dL Urine Ketones Trace (Negative) mg/dL Urine Blood Negative (Negative) Urine Nitrite Negative (Negative) Ur Leukocyte Esterase Negative (Negative) Urine RBC 0-2 (0-2) /HPF Urine WBC 0-5 (0-5) /HPF Ur Squamous Epith Cells 0-2 (0-2) /HPF Urine Bacteria None Seen (None Seen) Hyaline Casts 6-10 (0-2) /LPF Influenza Type A (PCR) (Negative) Influenza Type B (PCR) (Negative) RSV RNA Qual (PCR) (Negative) SARS-CoV-2 RNA (RT-PCR) (Negative) Discharge Plan Discharge Clinical Impression: Anxiety, Acute dehydration Patient Disposition: Home, Self-Care Instructions: Heart Palpitations (ED), Dehydration (ED), Anxiety (ED) Additional Instructions: You were treated for your elevated heart rate. To note, your heart rate normalized after receiving IV fluid. You did have an electrolyte abnormality, your magnesium was low. You were given magnesium as well. I do think your anxiety is contributory. However, you were also dehydrated. You need to follow up with your primary care provider for a Holter monitor trial, to determine if you have a true abnormal rhythm of your heart. Today, there was no concerning changes on your EKG, your cardiac enzymes and the remainder of your labs were normal. Your chest x-ray was clear. Call your primary care doctor tomorrow for an appointment. You should avoid excessive use of stimulants such as caffeine, excessive use of alcohol can cause symptoms as well. In regard to her anxiety, I am providing you with a list of outpatient resources so you can initiate therapy. I am sending you with a prescription for hydroxyzine, use it as needed for your anxiety. Prescriptions: New hydroxyzine HCl 50 mg tablet 50 mg PO QID PRN (Reason: anxiety) Qty: 20 0RF No Action cephalexin 500 mg capsule 500 mg PO BID Qty: 20 0RF doxycycline monohydrate 100 mg capsule 100 mg PO BID Qty: 20 0RF tamsulosin [Flomax] 0.4 mg capsule 0.4 mg PO BEDTIME Qty: 4 0RF ketorolac 10 mg tablet 10 mg PO Q6H PRN (Reason: pain) 5 Days Qty: 10 0RF Rx Instructions: Patient received Toradol in the emergency room. amlodipine 5 mg tablet 5 mg PO DAILY hydrochlorothiazide 25 mg tablet 25 mg PO DAILY lisinopril 40 mg tablet 40 mg PO DAILY Interventions: ED Discharge Assessment Last Done: 01/23/24 21:21 Discharge Date/Time: 01/23/24 21:28 Print Language: [place] Islander
[2024-01-23 13:47] VITALS: BP 138/83; PULSE 113; RESP 22; TEMP 36.6; O2SAT 99
[2024-01-23 13:57] LABS: MANUAL DIFF FLAG NO
[2024-01-23 13:59] LABS: Basophils Percent Auto 0.4 % (0-2); Hematocrit 37.8 % (42.0-52.0); Hemoglobin 13.7 g/dl (14.0-18.0); Imm Gran Abs Auto 0.04 X10*3/uL (0.00-0.03); Imm Gran Pct Auto 0.4 % (0.0-0.4); Lymphocytes Percent Auto 8.9 % (20-40); Mean Corpuscular HGB Conc 36.2 g/dl (31.0-36.0); Mean Corpuscular Hemoglobin 30.9 pg (27.0-33.0); Mean Corpuscular Volume 85.3 fL (80.0-98.0); Mean Platelet Volume 8.5 fL (9.4-12.4); Monocytes Absolute Auto 0.8 X10*3/uL (0.1-1.2); Neutrophils Absolute Auto 9.1 x10*3/uL (2.0-8.3); Neutrophils Percent Auto 83.3 % (45-73); Platelet Count 322 X10*3/uL (160-400); Red Blood Count 4.43 X10*6/uL (4.60-5.80); Red Cell Distribution Width 12.7 % (11.0-16.0); White Blood Count 10.9 X10*3/uL (4.8-10.8)
--- NOTE | 2024-01-23 14:02 | PC.NURSE ---
a&ox4. pt presents to the ED w/ constant left sided chest pain x this am. pt verbalizes he had an episode of 10/10 left sided chest pain/sob that lasted approximately 15 minutes this morning. pt also endorsing bilateral leg weakness and numbness/tingling in his feet bilaterally. pt states when chest pain occurred, he took a short walk which seems to relieve the pain. 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 upon ED arrival - sinus tachy on the lunchroom monitor. otherwise vss and up to date. 18gIV placed in the right AC - labs obtained/sent to lab. chest xray completed. no sob/wob noted. respirations even/unlabored. lung sounds CTA. plan of care ongoing. call salazar placed within reach.
[2024-01-23 14:10] LABS: Prothrombin Time 11.7 SEC (10.9-12.4)
[2024-01-23 14:13] LABS: Alanine Aminotransferase 60 U/L (0-40); Albumin Level 4.7 g/dL (3.5-5.0); Alkaline Phosphatase 67 U/L (39-117); Anion Gap 20 (12-20); Aspartate Amino Transferase 60 U/L (5-37); Bilirubin Total 0.6 mg/dL (0.0-1.0); Blood Urea Nitrogen 20 mg/dL (9-16); Calcium 9.9 mg/dL (8.4-10.2); Carbon Dioxide 22 mmol/L (22-29); Chloride 101 mmol/L (96-108); Creatinine Clr Calc Pharmacy 48.9; Estimated Glomerular Filt Rate 44; Glucose Random 178 mg/dL (60-115); Magnesium 1.6 mg/dL (1.6-2.6); Potassium 3.6 mmol/L (3.3-5.1); Sodium 139 mmol/L (135-145); Total Protein 7.9 g/dL (6.5-8.0)
[2024-01-23 14:20] LABS: Troponin-I High Sensitivity 3.6 ng/L (<3.5-35.0)
--- NOTE | 2024-01-23 14:28 | PC.NURSE ---
pt seemingly anxious. called this RN to room, sitting on edge of bed stating that he cannot breathe. pt SPO2 99% on RA. lung sounds CTA. pt positioned upright to promote patent airway. placed on 1L via NC to promote comfort. pt educated on how to slow down breathing. effectiveness pending.
[2024-01-23 14:39] LABS: Influenza A PCR NEGATIVE (Negative); Influenza B PCR NEGATIVE (Negative); Resp Syncy Virus RNA Qual PCR NEGATIVE (Negative); SARS COV2 PCR INHOUSE NEGATIVE (Negative)
[2024-01-23 15:33] VITALS: BP 135/85; PULSE 96; RESP 16; TEMP 36.9; O2SAT 96
[2024-01-23 16:31] LABS: D Dimer High Sensitivity 166 NG/ML
[2024-01-23 17:26] VITALS: BP 146/90; PULSE 96; RESP 16; TEMP 36.9; O2SAT 98
[2024-01-23] MEDS: Magnesium Sulfate/H2O 2 GM/50 ML PIGGYBACK IV (18:01)
[2024-01-23] MEDS: 0.9 % Sodium Chloride 1,000 ML 999 ML IV (18:01)
--- NOTE | 2024-01-23 18:01 | PC.NURSE ---
repeat troponin obtained/sent to lab. IVF/medication administered per provider order.
[2024-01-23 18:32] LABS: Troponin-I High Sensitivity 5.3 ng/L (<3.5-35.0)
[2024-01-23 19:19] VITALS: BP 140/86; PULSE 91; RESP 15; TEMP 36.6; O2SAT 96
[2024-01-23] MEDS: hydrOXYzine HCL 50 MG TABLET PO (19:20)
[2024-01-23 19:32] LABS: Appearance Urine Clear; Color Urine Yellow; Glucose Urine UA Negative (Negative); Leukocyte Esterase Urine Negative (Negative); Nitrite Urine Negative (Negative); PH 5.5 (5.0-9.0); Urine Blood Negative (Negative); Urine Ketones Trace mg/dL (Negative); Urine Protein Trace mg/dL (Neg-Trace)
[2024-01-23] MEDS: LORazepam 2 MG/ML VIAL 1 MG IVPUSH (19:41)
--- NOTE | 2024-01-23 19:44 | PC.NURSE ---
pt medicated per mar with PO medications, tolerated well with water. approx. 5 minutes after administrating, pt noted to be throwing up. Hanane SHAFFER aware, pt medicated per mar with IV medications. VSS.
[2024-01-23 19:55] LABS: Bacteria Urine None Seen (None Seen); RBC Urine 0-2 /HPF (0-2); Squamous Epithelial Cell Urine 0-2 /HPF (0-2); WBC Urine 0-5 /HPF (0-5)
[2024-01-23 21:21] VITALS: BP 140/86; PULSE 91; RESP 15; TEMP 36.6; O2SAT 96
== END 2024-01-23 21:28 | disposition home or self-care (01) ==
PROVIDERS: Nurse Practitioner Family; Physician Assistant Medical; Emergency Provider Emergency Medicine Emergency Medical Services; PCP Family Medicine
DX: R07.89 Other chest pain (principal); R06.02 Shortness of breath; R00.0 Tachycardia, unspecified; Z79.899 Other long term (current) drug therapy; Z03.818 Encounter for observation for suspected exposure to other biological agents ruled out
CPT/HCPCS: 0241U; 36415; 71046; 80053; 81001; 83735; 84484; 85025; 85379; 85610; 93005; 96361; 96374; 99284; 99285; J2060; J3475

== ENCOUNTER 2024-03-13 20:02 | Emergency (ER) | payer MEDICARE, MEDICAID, SELFPAY ==
--- NOTE | ~2024-03-13 | CT_ITS ---
EXAMINATION: CT HEAD WITHOUT CONTRAST CT FACIAL BONES WITHOUT CONTRAST CT CERVICAL SPINE WITHOUT CONTRAST CLINICAL INFORMATION: Fall. Head injury. COMPARISON: None available. TECHNIQUE: Imaging was performed from the skull base to vertex without intravenous administration of contrast. In addition, helical noncontrast CT imaging was acquired through the cervical spine and facial bones and source images were reviewed along with axial reconstructions and sagittal and coronal MPRs. This CT examination was performed using dose optimization techniques as appropriate, variously including the following: *Automated exposure control. *Adjustment of mA and/or kV according to patient size (this includes techniques or standardized protocols for targeted exams where dose is matched to indication/reason for exam; i.e. extremities or head). *Use of iterative reconstruction technique. DLP: 1828 mGy-cm FINDINGS: Head: There is no evidence of acute intracranial hemorrhage or edematous territorial infarction. Mace-white matter differentiation is preserved. A few foci of hypoattenuation in the periventricular and deep white matter most commonly seen with mild microangiopathy. The ventricles are normal in morphology and size. No evidence for obstructive hydrocephalus. No abnormal mass effect or midline shift. No extra-axial fluid collections. No acute soft tissue or osseous abnormalities. Maxillofacial Bones: No evidence of maxillofacial bone fractures. The zygomatic arches remain intact. No nasal bone fracture. The nasal septum remains midline. No evidence of mandibular or maxillary fracture. The mandibular condyles remain well-seated in their respective temporal articular grooves. Normal appearance of the intraconal and extraconal fat. No evidence of traumatic injury to the extraocular musculature or globes. The mastoid air cells and visualized paranasal sinuses are clear. No layering fluid collections. Mild soft tissue edema along the nasal bridge and chin. Cervical Spine: The atlantooccipital and atlantoaxial articulations remain well aligned. Mild right convex curvature of the cervical spine. Moderate degenerative arthropathy of the atlantodental articulation. Straightening of the normal cervical lordosis. Minimal degenerative retrolisthesis of C3 on C4. Otherwise, there is anatomic alignment of the vertebral bodies and posterior elements. No evidence of acute fracture or subluxation. The vertebral body heights are maintained. Advanced degenerative disc disease from C4-C6. Moderate degenerative disc disease at C3-C4 and from C6-T2. Facet and uncovertebral joint arthropathy leads to osseous encroachment on the neural foramina from C3-C6. There is no prevertebral soft tissue swelling. The thyroid gland and remaining cervical soft tissues are within normal limits. The lung apices demonstrate no abnormalities. CT/CT cervical spine wo IV con IMPRESSION: 1. No evidence of acute intracranial hemorrhage or edematous territorial infarction. Mild underlying microangiopathy. 2. No evidence of acute fracture or traumatic subluxation of the cervical spine. Moderate multilevel degenerative spondyloarthropathy of the cervical spine. 3. No evidence of acute fracture of the maxillofacial bones. Electronically signed by: Hugo Tipton DO 03/14/2024 02:16 AM EST
[2024-03-13 20:05] VITALS: BP 130/86; PULSE 92; O2SAT 97
[2024-03-13 20:15] VITALS: PULSE 85; RESP 16; TEMP 36.9; O2SAT 95; BMI 29.2
[2024-03-13 21:30] VITALS: BP 128/76; PULSE 85; RESP 17; TEMP 37.1; O2SAT 95
--- NOTE | 2024-03-13 21:33 | ECG_ITS ---
Test Reason : FALL Blood Pressure : / mmHG Vent. Rate : 092 BPM Atrial Rate : 092 BPM P-R Int : 158 ms QRS Dur : 082 ms QT Int : 346 ms P-R-T Axes : 012 034 007 degrees QTc Int : 427 ms Normal sinus rhythm Normal ECG When compared with ECG of 23-JAN-2024 13:27, Vent. rate has decreased BY [address] no longer depressed in Lateral leads Referred By: Stephanie Coelho Electronically Signed By:WILFRED WAYNE MD
[2024-03-13 22:14] LABS: MANUAL DIFF FLAG NO
[2024-03-13 22:16] LABS: Basophils Percent Auto 0.3 % (0-2); Eosinophils Absolute Auto 0.1 X10*3/uL (0.0-0.4); Eosinophils Percent Auto 0.8 % (0-4); Hematocrit 37.8 % (42.0-52.0); Hemoglobin 13.6 g/dl (14.0-18.0); Imm Gran Abs Auto 0.05 X10*3/uL (0.00-0.03); Imm Gran Pct Auto 0.5 % (0.0-0.4); Lymphocytes Absolute Auto 1.5 X10*3/uL (1.2-4.9); Lymphocytes Percent Auto 14.4 % (20-40); Mean Corpuscular Hemoglobin 30.4 pg (27.0-33.0); Mean Corpuscular Volume 84.4 fL (80.0-98.0); Mean Platelet Volume 8.6 fL (9.4-12.4); Monocytes Absolute Auto 0.5 X10*3/uL (0.1-1.2); Monocytes Percent Auto 4.5 % (2-11); Neutrophils Absolute Auto 8.1 x10*3/uL (2.0-8.3); Neutrophils Percent Auto 79.5 % (45-73); Platelet Count 315 X10*3/uL (160-400); Red Blood Count 4.48 X10*6/uL (4.60-5.80); Red Cell Distribution Width 12.3 % (11.0-16.0); White Blood Count 10.2 X10*3/uL (4.8-10.8)
[2024-03-13 22:28] LABS: Ethanol 345 mg/dL
[2024-03-13 22:30] LABS: Alanine Aminotransferase 57 U/L (0-40); Albumin Level 4.2 g/dL (3.5-5.0); Alkaline Phosphatase 62 U/L (39-117); Anion Gap 15 (12-20); Aspartate Amino Transferase 48 U/L (5-37); Bilirubin Total 0.2 mg/dL (0.0-1.0); Blood Urea Nitrogen 19 mg/dL (9-16); Calcium 8.6 mg/dL (8.4-10.2); Carbon Dioxide 23 mmol/L (22-29); Chloride 103 mmol/L (96-108); Creatinine Clr Calc Pharmacy 59.4; Estimated Glomerular Filt Rate 55; Glucose Random 196 mg/dL (60-115); Potassium 4.2 mmol/L (3.3-5.1); Sodium 137 mmol/L (135-145); Total Protein 7.1 g/dL (6.5-8.0)
[2024-03-13 22:37] LABS: Troponin-I High Sensitivity 3.4 ng/L (<3.5-35.0)
--- NOTE | 2024-03-13 22:43 | ED.FALL ---
HPI - Fall General Chief Complaint: Fall Stated Complaint: etoh,fall w/ headstrike Time Seen by Provider: 03/13/24 20:10 History of Present Illness HPI Narrative: Patient is 53 years old history of ETOH status post accidental fall. Not on blood thinners. Patient has no specific complaints. Admits to drinking alcohol. Can not give specific details. Related Data Home Medications ?Medication ?Instructions ?Recorded ?Confirmed amlodipine 5 mg tablet 5 mg PO DAILY 08/16/22 08/16/22 hydrochlorothiazide 25 mg tablet 25 mg PO DAILY 08/16/22 08/16/22 lisinopril 40 mg tablet 40 mg PO DAILY 08/16/22 08/16/22 Previous Rx's ?Medication ?Instructions ?Recorded ketorolac 10 mg tablet 10 mg PO Q6H PRN pain 5 days #10 08/13/22 tabs tamsulosin 0.4 mg capsule (Flomax) 0.4 mg PO BEDTIME #4 caps 08/13/22 cephalexin 500 mg capsule 500 mg PO BID #20 caps 01/17/23 doxycycline monohydrate 100 mg 100 mg PO BID #20 caps 01/17/23 capsule hydroxyzine HCl 50 mg tablet 50 mg PO QID PRN anxiety #20 tabs 01/23/24 Allergies Allergy/AdvReac Type Severity Reaction Status Date / Time oxycodone [From Percocet] Allergy Itching Verified 03/13/24 20:22 Review of Systems Review of Systems: Admits to drinking. Yes Unobtainable due to mental status PMFSH Social History Social History Household Members: Spouse Housing: House Do you presently have visiting nurse or other home services: No Alcohol intake: current Alcohol intake frequency: a few times a week Alcohol type: hard liquor Patient Tobacco Use Status: Never used Tobacco Smoked in Last 30 Days: No Second Hand Smoke Exposure: No Use of substances other than those prescribed or required for medical reasons: No Advance Directives: No Advance Directives Information Provided: No Do you have a plan to hurt others: No Plan service: No Current occupational status: disabled Physical Exam Vital Signs: Vital Signs: Last Vital Signs Temp 97.8 F 03/14/24 00:56 Pulse 94 03/14/24 00:56 Resp 16 03/14/24 00:56 BP 108/62 03/14/24 00:56 Pulse Ox 95 03/14/24 00:56 O2 Del Method Room Air 03/14/24 00:56 BMI result Body Mass Index 29.2 Appearance: Alert. Oriented X3. No acute distress. Significant abrasion to the forehead the nose the upper lip. There is no discernible laceration noted. There is no midface tenderness elicited on palpation. There is no malocclusion. Eyes: Pupils equal, round and reactive to light. ENT: Pharynx normal.. Neck: Normal inspection. Neck supple. No lymph nodes noted. No crepitus. No posterior C-spine tenderness elicited on palpation. C-spine immobilized. CVS: Normal heart rate and rhythm. Pulses normal. Normal S1 and S2 Respiratory: No respiratory distress. Breath sounds normal. No Wheezing. No rales. No chest wall tenderness no clavicular tenderness no crepitus elicited on palpation Abdomen: Soft and nontender. No rigidity. No distention. good BS x4 Skin: Skin warm and dry. Normal skin color. Normal skin turgor. Extremities: No lower extremity edema. Neurovascular intact to all extremities. No Lacerations. No Rash Neuro: Oriented X 3. No motor deficit. No sensory deficit. Moving all extermities. No slurred speech Medical Decision Making Medical Decision Making [facility] Narrative: Patient 53 years old positive EtOH fell hit his face. CT scan of the head CT scan of the max face and also C-spine was ordered. Patient's labs ordered. Alcohol extremely elevated at over 300. Otherwise electrolytes unremarkable. My interpretation patient's CT scan of the head was grossly negative. Currently awaiting clinical sobriety. Differential Diagnosis Differential Diagnoses: The differential diagnosis associated with the presentation includes Head injury, facial bone fracture, C-spine injury, alcohol intoxication, electrolyte disturbance Admission/Observation Consideration of admission/observation: Escalation of care including admission/observation considered Lab Data [facility] Lab Attestation statement: I reviewed the patient's lab results. 03/13/24 22:11 03/13/24 22:11 Labs: Lab Results 03/13/24 Range/Units 22:11 WBC 10.2 (4.8-10.8) X10*3/uL RBC 4.48 L (4.60-5.80) X10*6/uL Hgb 13.6 L (14.0-18.0) g/dl Hct 37.8 L (42.0-52.0) % MCV 84.4 (80.0-98.0) fL MCH 30.4 (27.0-33.0) pg MCHC 36.0 (31.0-36.0) g/dl RDW 12.3 (11.0-16.0) % Plt Count 315 (160-400) X10*3/uL MPV 8.6 L (9.4-12.4) fL Immature Gran % (Auto) 0.5 H (0.0-0.4) % Neut % (Auto) 79.5 H (45-73) % Lymph % (Auto) 14.4 L (20-40) % [place] % (Auto) 4.5 (2-11) % Eos % (Auto) 0.8 (0-4) % Baso % (Auto) 0.3 (0-2) % Lymph # (Auto) 1.5 (1.2-4.9) X10*3/uL [place] # (Auto) 0.5 (0.1-1.2) X10*3/uL Eos # (Auto) 0.1 (0.0-0.4) X10*3/uL Baso # (Auto) 0.0 (0.0-0.2) X10*3/uL Abs Immat Gran (auto) 0.05 H (0.00-0.03) X10*3/uL Absolute Neuts (auto) 8.1 (2.0-8.3) x10*3/uL Absolute Nucleated RBC 0.000 (0.0-0.012) X10*3/uL Nucleated RBC % (auto) 0.0 (0.0-0.2) /100WBC Sodium 137 (135-145) mmol/L Potassium 4.2 (3.3-5.1) mmol/L Chloride 103 (96-108) mmol/L Carbon Dioxide 23 (22-29) mmol/L Anion Gap 15 (12-20) BUN 19 H (9-16) mg/dL Creatinine 1.35 (0.5-1.4) mg/dL Estim Creat Clear Calc 59.4 Estimated GFR 55 Random Glucose 196 H (60-115) mg/dL Calcium 8.6 D (8.4-10.2) mg/dL Total Bilirubin 0.2 (0.0-1.0) mg/dL AST 48 H (5-37) U/L ALT 57 H (0-40) U/L Alkaline Phosphatase 62 (39-117) U/L Troponin I High Sens 3.4 (<3.5-35.0) ng/L Total Protein 7.1 (6.5-8.0) g/dL Albumin 4.2 (3.5-5.0) g/dL Ethyl Alcohol 345 H* mg/dL Independent Interpretation I performed an independent interpretation of an: CT Scan (CT scan head was grossly negative for acute evidence of bleeding) Social Determinants Patient?s care significantly limited by Social Determinants of Health including: Alcoholism and drug addiction in family Discharge Plan Discharge Clinical Impression: Head injury, Abrasion, Alcohol intoxication Patient Disposition: Still a Patient Instructions: Abuse of Alcohol (DC), Head Injury (ED), Abrasion (ED) Additional Instructions: Please stop drinking alcohol. Please go to detox. Prescriptions: No Action cephalexin 500 mg capsule 500 mg PO BID Qty: 20 0RF doxycycline monohydrate 100 mg capsule 100 mg PO BID Qty: 20 0RF hydroxyzine HCl 50 mg tablet 50 mg PO QID PRN (Reason: anxiety) Qty: 20 0RF tamsulosin [Flomax] 0.4 mg capsule 0.4 mg PO BEDTIME Qty: 4 0RF ketorolac 10 mg tablet 10 mg PO Q6H PRN (Reason: pain) 5 Days Qty: 10 0RF Rx Instructions: Patient received Toradol in the emergency room. amlodipine 5 mg tablet 5 mg PO DAILY hydrochlorothiazide 25 mg tablet 25 mg PO DAILY lisinopril 40 mg tablet 40 mg PO DAILY Referrals: Jerrica Hernández MD [Primary Care Provider] - 03/16/24 Print Language: French
--- NOTE | 2024-03-13 23:24 | MHC.EDTECH ---
this tech assumed care of pt at 2300, upon rounding the pt was witnessed laying supine w/ neck collar on and appeared to be in no apparent distress. Pt had even unlabored respirations and no needs made aware at this time.
[2024-03-14 00:56] VITALS: BP 108/62; PULSE 94; RESP 16; TEMP 36.6; O2SAT 95
[2024-03-14 02:34] VITALS: BP 124/64; PULSE 91; RESP 16; TEMP 36.6; O2SAT 96
[2024-03-14 06:37] VITALS: BP 124/64; PULSE 91; RESP 16; TEMP 36.6; O2SAT 96
== END 2024-03-14 06:40 | disposition home or self-care (01) ==
PROVIDERS: Emergency Provider Emergency Medicine Emergency Medical Services; PCP Family Medicine
DX: F10.920 Alcohol use, unspecified with intoxication, uncomplicated (principal); Y90.8 Blood alcohol level of 240 mg/100 ml or more; S09.90XA Unspecified injury of head, initial encounter; S00.81XA Abrasion of other part of head, initial encounter; S00.31XA Abrasion of nose, initial encounter; S00.511A Abrasion of lip, initial encounter; W19.XXXA Unspecified fall, initial encounter; Y93.01 Activity, walking, marching and hiking; Y92.480 Sidewalk as the place of occurrence of the external cause; Y99.9 Unspecified external cause status
CPT/HCPCS: 36415; 70450; 70486; 72125; 80053; 80307; 84484; 85025; 93005; 99284

== ENCOUNTER → 2024-03-13 21:33 | Outpatient (BNV) | payer MEDICARE, MEDICAID, SELFPAY | PROVIDERS: Emergency Provider Emergency Medicine Emergency Medical Services; PCP Family Medicine; Visit Provider Internal Medicine Cardiovascular Disease | DX: S09.90XA Unspecified injury of head, initial encounter (principal); W19.XXXA Unspecified fall, initial encounter; F10.929 Alcohol use, unspecified with intoxication, unspecified | CPT/HCPCS: 93010 ==